=== PATIENT | male | born 1960 | race American Indian/Alaskan Native ===

== ENCOUNTER 2021-12-03 08:22 | Inpatient (IN) | payer BC ==
--- NOTE | 2021-12-03 08:58 | Emergency Department Report ---
ED Shortness of Breath HPI - General Chief Complaint: Dyspnea/Respdistress Stated Complaint: RESP DISTRESS Time Seen by Provider: 12/03/21 08:45 Source: patient, EMS Mode of arrival: Stretcher Limitations: No Limitations - History of Present Illness Initial Comments: Patient is a 61-year-old male with history of COPD brought in by EMS for evaluation of severe respiratory distress this morning. He reports history of pneumonia recently. EMS reports patient diaphoretic and tachypneic on arrival with sats in the 80s with tripoding. He was subsequently placed on 10 L of oxygen and given albuterol neb and placed on CPAP. No prior history of intubati on. - Related Data Allergies Allergy/AdvReac Type Severity Reaction Status Date / Time No Known Allergies Allergy Verified 12/03/21 08:56 ED Review of Systems ROS: Stated complaint: RESP DISTRESS Other details as noted in HPI Constitutional: denies: chills, fever Respiratory: shortness of breath Cardiovascular: denies: chest pain, palpitations Gastrointestinal: denies: abdominal pain, nausea, diarrhea Genitourinary: denies: urgency, dysuria Musculoskeletal: denies: back pain, joint swelling, arthralgia Skin: denies: rash, lesions Neurological: denies: headache, weakness, paresthesias Psychiatric: denies: anxiety, depression ED Past Medical Hx - Past Medical History Hx COPD: Yes ED Physical Exam - General Limitations: No Limitations General appearance: alert, in distress - Head Head exam: Present: atraumatic, normocephalic - Respiratory Respiratory exam: Present: respiratory distress, rales (Apical Rales bilaterally), accessory muscle use, decreased breath sounds, other (Tachypnea) - Cardiovascular Cardiovascular Exam: Present: regular rate, normal rhythm, normal heart sounds - GI/Abdominal GI/Abdominal exam: Present: soft. Absent: distended, tenderness - Rectal Rectal exam: Present: deferred - Neurological Exam Neurological exam: Present: alert, oriented X3 - Psychiatric Psychiatric exam: Present: normal affect, normal mood - Skin Skin exam: Present: warm, dry, intact, normal color ED Course Vital Signs 12/03/21 12/03/21 12/03/21 08:56 09:08 09:09 Temperature 98.4 F Pulse Rate 68 Pulse Rate [ Anterior Bilateral Throughout] Respiratory 16 Rate Respiratory Rate [Anterior Bilateral Throughout] Blood Pressure Blood Pressure 140/64 [Left] O2 Sat by Pulse 97 94 Oximetry 12/03/21 12/03/21 12/03/21 09:19 09:28 10:25 Temperature Pulse Rate 69 53 L Pulse Rate [ 56 L Anterior Bilateral Throughout] Respiratory 26 H 21 Rate Respiratory 24 Rate [Anterior Bilateral Throughout] Blood Pressure 140/94 128/87 Blood Pressure [Left] O2 Sat by Pulse 98 97 Oximetry ED Medical Decision Making - Lab Data Result diagrams: 12/03/21 09:15 12/03/21 09:15 - Medical Decision Making Patient transitioned to BiPAP upon arrival and appears to have improved work of breathing. ABG with pH of 7.34, PCO2 47, PO2 91, HCO3 24. Chest ray shows mild cardiomegaly with bibasilar opacities. In addition to the Decadron and albuterol he was given by EMS we administered several DuoNeb treatments. Will admit to hospitalist for acute respiratory failure with hypoxia. Critical care attestation.: If time is entered above; I have spent that time in minutes in the direct care of this critically ill patient, excluding procedure time. ED Disposition Clinical Impression: Acute respiratory failure, COPD exacerbation Disposition: ADMITTED INPATIENT Is pt being admited?: Yes Condition: Stable Instructions: Chronic Obstructive Pulmonary Disease (ED)
[2021-12-03] MEDS ORDERED: IPRATROPIUM/ALBUTEROL SULFATE 3 ML AMPUL.NEB IH ONE (09:00)
[2021-12-03 09:23] LABS: ABG Base Excess -1.3 mmol/L (-2.0-3.0); ABG HCO3 24.8 mmol/L (20.0-26.0); ABG Methemoglobin 0.5 % (0.0-1.5); ABG Oxygen Saturation 96.7 % (95.0-99.0); ABG PCO2 47.1 mm Hg; ABG PH 7.34 pH Units (7.350-7.450); ABG PO2 91.1 mm Hg (80.0-90.0)
--- NOTE | 2021-12-03 09:27 | XRay Report ---
CHEST 1 VIEW 12/03/2021 9:00 AM INDICATION / CLINICAL INFORMATION: Dyspnea. COMPARISON: None available. FINDINGS: SUPPORT DEVICES: None. HEART / MEDIASTINUM: Heart is enlarged with left-sided single lead AICD. LUNGS / PLEURA: Mild bibasilar pulmonary opacities. No pneumothorax. ADDITIONAL FINDINGS: Severe S-shaped thoracic scoliosis. IMPRESSION: 1. Mild cardiomegaly with bibasilar pulmonary opacities. No large pleural effusion. Signer Name: Yobani Bradley MD Signed: 12/03/2021 9:23 AM Workstation Name: [id number]
[2021-12-03 09:52] LABS: Hematocrit 38.6 % (35.5-45.6); Hemoglobin 12.6 gm/dl (11.8-15.2); Mean Corpuscular HGB Conc 33 % (32-34); Mean Corpuscular Volume 95 fl (84-94); Platelet Count 239 K/mm3 (140-440); Red Blood Count 4.07 M/mm3 (3.65-5.03); Red Cell Distribution Width 13.8 % (13.2-15.2)
[2021-12-03 10:14] LABS: Albumin 3.9 g/dL (3.9-5); Calcium 8.8 mg/dL (8.4-10.2)
[2021-12-03] MEDS ORDERED: ONDANSETRON 4 MG/2 ML INJ IV PRN (11:09)
[2021-12-03] MEDS ORDERED: DEXTROSE 50% IN WATER (25GM) 50 ML SYRINGE IV PRN (11:09)
[2021-12-03] MEDS ORDERED: ACETAMINOPHEN 325 MG TAB PO PRN (11:09)
[2021-12-03] MEDS ORDERED: NALOXONE 0.4 MG/1 ML INJ IV PRN (11:09)
[2021-12-03] MEDS ORDERED: oxyCODONE /ACETAMINOPHEN 5-325MG TAB PO PRN (11:09)
[2021-12-03 11:16] LABS: Basophils % (Manual) 0 % (0.0-1.8); Eosinophils % (Manual) 0 % (0.0-4.3); Monocytes % (Manual) 0 % (0.0-7.3); RBC Morphology Normal; Total Cells Counted 100
[2021-12-03 11:17] LABS: Platelet Clumps Rare; Platelet Estimate Consistent w Auto; Toxic Granulation 1+
--- NOTE | 2021-12-03 11:17 | History and Physical Report ---
History of Present Illness Date of examination: 12/03/21 Date of admission: 12/03/21 Chief complaint: Shortness of breath History of present illness: Patient is a 61-year-old male with past medical history of COPD,CVA ?congestive heart failure, who presents to the hospital with complaint of shortness of breath that has been ongoing for about a week and got worse today. 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 He was noted to have a saturation in the 80s and was tripoding unable to complete sentences and was initially placed on 10 L of oxygen and subsequently changed to BiPAP. While he told the ED physician that he has no prior history of intubation he tells me that he may have but again could not really understand him through the BiPAP mask. No family is available he is originally from [place] and was just traveling to visit with his brother. He tells me that he is vaccinated and has received his booster shots. He was able to list some blood pressure medication that he takes but not all his medicines and did not know the doses. He mentioned Norvasc, Coreg, Lasix. He did mention that this is his third episode this year requiring hospitalization he could not give me his blood pressure information on daly arana has not obtained this.. Past History Past Medical History: COPD, heart failure, hypertension, hyperlipidemia Medications and Allergies Allergies Allergy/AdvReac Type Severity Reaction Status Date / Time No Known Allergies Allergy Verified 12/03/21 08:56 Home Medications Medication Instructions Recorded Confirmed Last Taken Type Aspirin 81 mg PO DAILY 12/03/21 12/03/21 Unknown History AtorvaSTATin 40 mg PO HS 12/03/21 12/03/21 Unknown History Isosorbide Dinitrate 20 mg PO DAILY 12/03/21 12/03/21 Unknown History Lasix TAB 40 mg PO DAILY 12/03/21 12/03/21 Unknown History Plavix 40 mg PO DAILY 12/03/21 12/03/21 Unknown History Protonix 40 mg PO DAILY 12/03/21 12/03/21 Unknown History Sacubitril/Valsartan 24 mg PO DAILY 12/03/21 12/03/21 Unknown History amLODIPine 5 mg PO DAILY 12/03/21 12/03/21 Unknown History carvediloL 12.5 mg PO DAILY 12/03/21 12/03/21 Unknown History hydrALAZINE 25 mg PO DAILY 12/03/21 12/03/21 Unknown History Active Meds: Active Medications Acetaminophen (Acetaminophen 325 Mg Tab) 650 mg PO Q6H PRN PRN Reason: Pain MILD(1-3)/Fever >100.5/[facility] Albuterol/Ipratropium (Ipratropium/Albuterol Sulfate 3 Ml Ampul.Neb) 1 ampul IH Q6HRT [facility] Amlodipine Besylate (Amlodipine 5 Mg Tab) 5 mg PO QDAY [facility] Aspirin (Aspirin 325 Mg Tab) 325 mg PO QDAY [facility] Atorvastatin Calcium (Atorvastatin 40 Mg Tab) 40 mg PO QHS [facility] Azithromycin (Azithromycin 250 Mg Tab) 500 mg PO QDAY [facility]; Protocol Budesonide (Budesonide 0.5 Mg/2 Ml Nebu) 0.5 mg IH Q12HRT [facility] Carvedilol (Carvedilol 3.125 Mg Tab) 3.125 mg PO BID [facility] Dextrose (Dextrose 50% In Water (25gm) 50 Ml Syringe) 50 ml IV Q30MIN PRN; Protocol PRN Reason: Hypoglycemia Furosemide (Furosemide 40 Mg/4 Ml Inj) 40 mg IV QDAY [facility] Heparin Sodium (Porcine) (Heparin 5,000 Unit/1 Ml Vial) 5,000 unit SUB-Q Q8HR [facility] Ceftriaxone Sodium (Rocephin/Ns 2 Gm/100 Ml) 2 gm in 100 mls @ 200 mls/hr IV Q24H [facility]; Protocol Methylprednisolone Sodium Succinate (Methylprednisolone Sod Succinate 125 Mg/2 Ml Inj) 80 mg IV Q8HR [facility] Naloxone HCl (Naloxone 0.4 Mg/1 Ml Inj) 0.1 mg IV Q2MIN PRN PRN Reason: Res Rate </= 8 or 02 SAT < 92% Ondansetron HCl (Ondansetron 4 Mg/2 Ml Inj) 4 mg IV Q8H PRN PRN Reason: Nausea And Vomiting Oxycodone/Acetaminophen (Oxycodone /Acetaminophen 5-325mg Tab) 1 tab PO Q6H PRN PRN Reason: Pain, Moderate (4-6) Senna (Sennosides 8.6 Mg Tab) 8.6 mg PO BID [facility] Sodium Chloride (Sodium Chloride 0.9% 10 Ml Flush Syringe) 10 ml IV BID [facility] Sodium Chloride (Sodium Chloride 0.9% 10 Ml Flush Syringe) 10 ml IV PRN PRN PRN Reason: LINE FLUSH Review of Systems All systems: negative Constitutional: sweats Cardiovascular: shortness of breath, dyspnea on exertion, no chest pain, no orthopnea, no palpitations, no rapid/irregular heart beat, no edema, no syncope, no lightheadedness Respiratory: shortness of breath, dyspnea on exertion Gastrointestinal: no abdominal pain, no nausea, no vomiting, no diarrhea Genitourinary Male: no hematuria, no flank pain, no discharge Integumentary: no rash, no pruritis, no redness, no sores, no wounds, no jaundice Neurological: no head injury, no transient paralysis, no paralysis, no weakness, no parathesias Psychiatric: no memory loss, no insomnia, no disorientation, no anxiety attacks Endocrine: no heat intolerance, no polydipsia, no excessive sweating Hematologic/Lymphatic: no easy bruising, no lymphadenopathy, no lymphedema Exam - Physical Exam Narrative exam: VITAL SIGNS: Reviewed. GENERAL: The patient appears normally developed, otherwise no acute distress on BiPAP vital signs as documented. HEAD: No signs of head trauma. EYES: Pupils are equal. Extraocular motions intact. EARS: Hearing grossly intact. MOUTH: Oropharynx is normal. NECK: No adenopathy, no JVD. CHEST: Chest with diminished breath sounds bilaterally, increased work of breathing unable to complete sentences. CARDIAC: Regular rate and rhythm. S1 and S2, without murmurs, gallops, or rubs. VASCULAR: No Edema. Peripheral pulses normal and equal in all extremities. ABDOMEN: Soft, non tender and non distended. No rebound or guarding, and no masses palpated. Bowel Sounds normal. MUSCULOSKELETAL: Good range of motion of all major joints. Extremities without clubbing, cyanosis or edema. NEUROLOGIC EXAM: Alert and oriented x 3 No focal sensory or strength deficits. Speech normal. Follows commands. PSYCHIATRIC: Mood normal. SKIN: detail exam as documented in skin assessment - Constitutional Vitals: Temp Pulse Resp BP Pulse Ox 98.4 F 53 L 21 128/87 97 12/03/21 09:09 12/03/21 10:25 12/03/21 10:25 12/03/21 10:25 12/03/21 10:25 Results - Labs CBC & Chem 7: 12/04/21 03:20 12/04/21 03:20 Labs: Laboratory Last Values WBC 11.1 K/mm3 (4.5-11.0) H 12/03/21 09:15 RBC 4.07 M/mm3 (3.65-5.03) 12/03/21 09:15 Hgb 12.6 gm/dl (11.8-15.2) 12/03/21 09:15 Hct 38.6 % (35.5-45.6) 12/03/21 09:15 MCV 95 fl (84-94) H 12/03/21 09:15 MCH 31 pg (28-32) 12/03/21 09:15 MCHC 33 % (32-34) 12/03/21 09:15 RDW 13.8 % (13.2-15.2) 12/03/21 09:15 Plt Count 239 K/mm3 (140-440) 12/03/21 09:15 Add Manual Diff Complete 12/03/21 09:15 Total Counted 100 12/03/21 09:15 Seg Neutrophils % [employer] 12/03/21 09:15 Seg Neuts % (Manual) 93.0 % (40.0-70.0) H 12/03/21 09:15 Band Neutrophils % 0 % 12/03/21 09:15 Lymphocytes % (Manual) 7.0 % (13.4-35.0) L 12/03/21 09:15 Reactive Lymphs % (Man) 0 % 12/03/21 09:15 Monocytes % (Manual) 0 % (0.0-7.3) 12/03/21 09:15 Eosinophils % (Manual) 0 % (0.0-4.3) 12/03/21 09:15 Basophils % (Manual) 0 % (0.0-1.8) 12/03/21 09:15 Metamyelocytes % 0 % 12/03/21 09:15 Myelocytes % 0 % 12/03/21 09:15 Promyelocytes % 0 % 12/03/21 09:15 Blast Cells % 0 % 12/03/21 09:15 Nucleated RBC % Not Reportable 12/03/21 09:15 Seg Neutrophils # Man 10.3 K/mm3 (1.8-7.7) H 12/03/21 09:15 Band Neutrophils # 0.0 K/mm3 12/03/21 09:15 Lymphocytes # (Manual) 0.8 K/mm3 (1.2-5.4) L 12/03/21 09:15 Abs React Lymphs (Man) 0.0 K/mm3 12/03/21 09:15 Monocytes # (Manual) 0.0 K/mm3 (0.0-0.8) 12/03/21 09:15 Eosinophils # (Manual) 0.0 K/mm3 (0.0-0.4) 12/03/21 09:15 Basophils # (Manual) 0.0 K/mm3 (0.0-0.1) 12/03/21 09:15 Metamyelocytes # 0.0 K/mm3 12/03/21 09:15 Myelocytes # 0.0 K/mm3 12/03/21 09:15 Promyelocytes # 0.0 K/mm3 12/03/21 09:15 Blast Cells # 0.0 K/mm3 12/03/21 09:15 WBC Morphology Not Reportable 12/03/21 09:15 Hypersegmented Neuts Not Reportable 12/03/21 09:15 Hyposegmented Neuts Not Reportable 12/03/21 09:15 Hypogranular Neuts Not Reportable 12/03/21 09:15 Smudge Cells Not Reportable 12/03/21 09:15 Toxic Granulation 1+ 12/03/21 09:15 Toxic Vacuolation Not Reportable 12/03/21 09:15 Dohle Bodies Not Reportable 12/03/21 09:15 Pelger-Huet Anomaly Not Reportable 12/03/21 09:15 Delvin Rods Not Reportable 12/03/21 09:15 Platelet Estimate Consistent w auto 12/03/21 09:15 Clumped Platelets Rare 12/03/21 09:15 Plt Clumps, EDTA Not Reportable 12/03/21 09:15 Large Platelets Not Reportable 12/03/21 09:15 Giant Platelets Not Reportable 12/03/21 09:15 Platelet Satelliting Not Reportable 12/03/21 09:15 Plt Morphology Comment Not Reportable 12/03/21 09:15 RBC Morphology Normal 12/03/21 09:15 Dimorphic RBCs Not Reportable 12/03/21 09:15 Polychromasia Not Reportable 12/03/21 09:15 Hypochromasia Not Reportable 12/03/21 09:15 Poikilocytosis Not Reportable 12/03/21 09:15 Anisocytosis Not Reportable 12/03/21 09:15 Microcytosis Not Reportable 12/03/21 09:15 Macrocytosis Not Reportable 12/03/21 09:15 Spherocytes Not Reportable 12/03/21 09:15 Pappenheimer Bodies Not Reportable 12/03/21 09:15 Sickle Cells Not Reportable 12/03/21 09:15 Target Cells Not Reportable 12/03/21 09:15 Tear Drop Cells Not Reportable 12/03/21 09:15 Ovalocytes Not Reportable 12/03/21 09:15 Helmet Cells Not Reportable 12/03/21 09:15 Ring-Warthen Bodies Not Reportable 12/03/21 09:15 [place] Rings Not Reportable 12/03/21 09:15 Bhaskar Cells Not Reportable 12/03/21 09:15 Bite Cells Not Reportable 12/03/21 09:15 Crenated Cell Not Reportable 12/03/21 09:15 Elliptocytes Not Reportable 12/03/21 09:15 Acanthocytes (Spur) Not Reportable 12/03/21 09:15 Rouleaux Not Reportable 12/03/21 09:15 Hemoglobin C Crystals Not Reportable 12/03/21 09:15 Schistocytes Not Reportable 12/03/21 09:15 Malaria parasites Not Reportable 12/03/21 09:15 Madan Bodies Not Reportable 12/03/21 09:15 Hem Pathologist Commnt No 12/03/21 09:15 ABG pH 7.340 pH Units (7.350-7.450) L 12/03/21 08:55 ABG pCO2 47.1 mm Hg 12/03/21 08:55 ABG pO2 91.1 mm Hg (80.0-90.0) H 12/03/21 08:55 ABG HCO3 24.8 mmol/L (20.0-26.0) 12/03/21 08:55 ABG O2 Saturation 96.7 % (95.0-99.0) 12/03/21 08:55 ABG O2 Content 17.7 (0.0-44) 12/03/21 08:55 ABG Base Excess -1.3 mmol/L (-2.0-3.0) 12/03/21 08:55 ABG Hemoglobin 13.2 gm/dl (14.0-18.0) L 12/03/21 08:55 ABG Carboxyhemoglobin 1.2 % (0.0-5.0) 12/03/21 08:55 ABG Methemoglobin 0.5 % (0.0-1.5) 12/03/21 08:55 Oxyhemoglobin 95.1 % (95.0-99.0) 12/03/21 08:55 FiO2 40 % 12/03/21 08:55 Sodium 140 mmol/L (137-145) 12/03/21 09:15 Potassium 4.0 mmol/L (3.6-5.0) 12/03/21 09:15 Chloride 103.8 mmol/L (98-107) 12/03/21 09:15 Carbon Dioxide 26 mmol/L (22-30) 12/03/21 09:15 Anion Gap 14 mmol/L 12/03/21 09:15 BUN 23 mg/dL (9-20) H 12/03/21 09:15 Creatinine 1.3 mg/dL (0.8-1.3) 12/03/21 09:15 Estimated GFR 56 ml/min 12/03/21 09:15 BUN/Creatinine Ratio 18 % 12/03/21 09:15 Glucose 195 mg/dL (75-100) H 12/03/21 09:15 Calcium 8.8 mg/dL (8.4-10.2) 12/03/21 09:15 Total Bilirubin 0.20 mg/dL (0.1-1.2) 12/03/21 09:15 AST 24 units/L (5-40) 12/03/21 09:15 ALT 34 units/L (7-56) 12/03/21 09:15 Alkaline Phosphatase 53 units/L (35-129) 12/03/21 09:15 Total Protein 7.2 g/dL (6.3-8.2) 12/03/21 09:15 Albumin 3.9 g/dL (3.9-5) 12/03/21 09:15 Albumin/Globulin Ratio 1.2 % 12/03/21 09:15 Assessment and Plan Assessment and plan: Patient is a 61-year-old male with past medical history of COPD, congestive heart failure, who presents to the hospital with complaint of shortness of breath that has been ongoing for about a week and got worse today. 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 He was noted to have a saturation in the 80s and was tripoding unable to complete sentences and was initially placed on 10 L of oxygen and subsequently changed to BiPAP. While he told the ED physician that he has no prior history of intubation he tells me that he may have but again could not really understand him through the BiPAP mask. No family is available he is originally from [place] and was just traveling to visit with his brother. He tells me that he is vaccinated and has received his booster shots. He was able to list some blood pressure medication that he takes but not all his medicines and did not know the doses. He mentioned Norvasc, Coreg, Lasix. He did mention that this is his third episode this year requiring hospitalization he could not give me his blood pressure information on registration has not obtained this.. Acute hypoxic respiratory failure likely secondary to COPD exacerbation with underlying congestive heart failure COPD with exacerbation possible underlying bronchitis CHF possibly systolic with exacerbation Hyperglycemia question underlining diabetes Hypertension Morbid obesity Bradycardia hX OF cva Plan Admit to IMCU Wean as tolerated from BIPAP. Pateint remains on BiPAP and is unable to carry out full conversation. Will revist to further evaluate Will give a full dose of Lovenox and check a D.dimer, if elevated, will obtain CTA Doppler lower ext COPD/CHF protocol Pulm and cardiology consulted Try to obtain more hx in relation to prior intubation and also home medications Steroids/NEBS Lasix Continuous pulse ox DVT/GI PROPHY The high probability of a clinically significant, sudden or life threatening d eterioration of the [PULM, CARDIAC] system(s) required my full and direct attention, intervention and personal management. The aggregate critical care time was [90] minutes. This time is in addition to time spent performing reported procedures but includes the following: [X] Data Review and interpretation [X] Patient assessment and monitoring of vital signs [X] Documentation [X] Medication orders and management Advance Directives: Yes (Full code) Plan of care discussed with patient/family: Yes
--- NOTE | 2021-12-03 11:19 | Consultation ---
History of Present Illness Consult date: 12/03/21 Requesting physician: CAHDWICK THOMPSON Reason for consult: COPD, hypoxemia History of present illness: 61 y/o male with no prior history of COPD, but does have a history of CHF diagnosed back in August of this year admitted with acute respiratory failure. Patient is from [place] and is here visiting. Per patient started feeling tight yesterday morning while washing up. Was diagnosed with pneumonia about a week ago. Per patient has been dealing with "fluid build up " since August. Remainder of the review is negative. BNP was elevated at 963. On continuous bipap. Past History Past Medical History: heart failure, hypertension, other (obesity) Social history: smoking (quit smoking in 2019) Medications and Allergies Allergies Allergy/AdvReac Type Severity Reaction Status Date / Time No Known Allergies Allergy Verified 12/03/21 08:56 Home Medications Medication Instructions Recorded Confirmed Last Taken Type Aspirin 81 mg PO DAILY 12/03/21 12/03/21 Unknown History AtorvaSTATin 40 mg PO HS 12/03/21 12/03/21 Unknown History Isosorbide Dinitrate 20 mg PO DAILY 12/03/21 12/03/21 Unknown History Lasix TAB 40 mg PO DAILY 12/03/21 12/03/21 Unknown History Plavix 40 mg PO DAILY 12/03/21 12/03/21 Unknown History Protonix 40 mg PO DAILY 12/03/21 12/03/21 Unknown History Sacubitril/Valsartan 24 mg PO DAILY 12/03/21 12/03/21 Unknown History amLODIPine 5 mg PO DAILY 12/03/21 12/03/21 Unknown History carvediloL 12.5 mg PO DAILY 12/03/21 12/03/21 Unknown History hydrALAZINE 25 mg PO DAILY 12/03/21 12/03/21 Unknown History Active Meds: Active Medications Acetaminophen (Acetaminophen 325 Mg Tab) 650 mg PO Q6H PRN PRN Reason: Pain MILD(1-3)/Fever >100.5/[facility] Albuterol/Ipratropium (Ipratropium/Albuterol Sulfate 3 Ml Ampul.Neb) 1 ampul IH Q6HRT [facility] Amlodipine Besylate (Amlodipine 5 Mg Tab) 5 mg PO QDAY [facility] Aspirin (Aspirin 325 Mg Tab) 325 mg PO QDAY [facility] Atorvastatin Calcium (Atorvastatin 40 Mg Tab) 40 mg PO QHS [facility] Azithromycin (Azithromycin 250 Mg Tab) 500 mg PO QDAY [facility]; Protocol Budesonide (Budesonide 0.5 Mg/2 Ml Nebu) 0.5 mg IH Q12HRT [facility] Carvedilol (Carvedilol 3.125 Mg Tab) 3.125 mg PO BID [facility] Dextrose (Dextrose 50% In Water (25gm) 50 Ml Syringe) 50 ml IV Q30MIN PRN; Protocol PRN Reason: Hypoglycemia Furosemide (Furosemide 40 Mg/4 Ml Inj) 40 mg IV QDAY [facility] Heparin Sodium (Porcine) (Heparin 5,000 Unit/1 Ml Vial) 5,000 unit SUB-Q Q8HR [facility] Ceftriaxone Sodium (Rocephin/Ns 2 Gm/100 Ml) 2 gm in 100 mls @ 200 mls/hr IV Q24H [facility]; Protocol Methylprednisolone Sodium Succinate (Methylprednisolone Sod Succinate 125 Mg/2 Ml Inj) 80 mg IV Q8HR [facility] Naloxone HCl (Naloxone 0.4 Mg/1 Ml Inj) 0.1 mg IV Q2MIN PRN PRN Reason: Res Rate </= 8 or 02 SAT < 92% Ondansetron HCl (Ondansetron 4 Mg/2 Ml Inj) 4 mg IV Q8H PRN PRN Reason: Nausea And Vomiting Oxycodone/Acetaminophen (Oxycodone /Acetaminophen 5-325mg Tab) 1 tab PO Q6H PRN PRN Reason: Pain, Moderate (4-6) Senna (Sennosides 8.6 Mg Tab) 8.6 mg PO BID [facility] Sodium Chloride (Sodium Chloride 0.9% 10 Ml Flush Syringe) 10 ml IV BID [facility] Sodium Chloride (Sodium Chloride 0.9% 10 Ml Flush Syringe) 10 ml IV PRN PRN PRN Reason: LINE FLUSH Review of Systems All systems: negative Physical Examination Vital signs: Vital Signs Pulse Ox 97 12/03/21 08:56 General appearance: no acute distress, alert Eyes: non-icteric Neck: supple Effort: mildly labored Ascultation: Bilateral: diminished breath sounds Percussion: Bilateral: not dull Tactile fremitus: Bilateral: normal Cardiovascular: regular rate and rhythm Gastrointestinal: normoactive bowel sounds normal mental status, non-focal exam mood appropriate, affect normal Results - Laboratory Findings CBC and BMP: 12/04/21 03:20 12/04/21 03:20 ABG ABG pH 7.340 pH Units (7.350-7.450) L 12/03/21 08:55 ABG pCO2 47.1 mm Hg 12/03/21 08:55 ABG pO2 91.1 mm Hg (80.0-90.0) H 12/03/21 08:55 ABG O2 Saturation 96.7 % (95.0-99.0) 12/03/21 08:55 Abnormal lab findings: Abnormal Labs 12/03/21 12/03/21 12/03/21 08:55 09:15 09:15 WBC 11.1 H MCV 95 H Seg Neuts % (Manual) 93.0 H Lymphocytes % (Manual) 7.0 L Seg Neutrophils # Man 10.3 H Lymphocytes # (Manual) 0.8 L ABG pH 7.340 L ABG pO2 91.1 H ABG Hemoglobin 13.2 L BUN 23 H Glucose 195 H - Diagnostic Findings Chest x-ray: image reviewed CT scan - chest: image reviewed Assessment and Plan 61 y/o male with acute respiratory failure. 1. Elevated BNP 2. Continue diuresis 3. stop steroids 4. Wean FiO2 as tolerated.
[2021-12-03] MEDS: AZITHROMYCIN 250 MG TAB PO SCH (12:06)
[2021-12-03] MEDS: FUROSEMIDE 40 MG/4 ML INJ IV SCH (12:07)
[2021-12-03] MEDS: cefTRIAXone/NS 2 GM/100 ML 2 GM/100 ML BAG IV SCH (12:07)
[2021-12-03] MEDS ORDERED: ENOXAPARIN 100 MG/1 ML INJ SUB-Q ONE (12:18)
[2021-12-03] MEDS: methylPREDNISolone Sod Succinate 125 MG/2 ML INJ IV SCH ×2 (15:00→21:01)
[2021-12-03] MEDS: HEPARIN 5,000 UNIT/1 ML VIAL SUB-Q SCH ×2 (15:35→21:00)
[2021-12-03] MEDS: IPRATROPIUM/ALBUTEROL SULFATE 3 ML AMPUL.NEB IH SCH ×2 (16:44→20:11)
[2021-12-03] MEDS: BUDESONIDE 0.5 MG/2 ML NEBU IH SCH (20:11)
[2021-12-03] MEDS: carvediloL 3.125 MG TAB PO SCH (21:00)
[2021-12-03] MEDS: SENNOSIDES 8.6 MG TAB PO SCH (21:01)
[2021-12-03] MEDS ORDERED: carvediloL 6.25 MG TAB PO SCH (22:00)
[2021-12-04 03:59] LABS: Basophils # (Auto) 0.1 K/mm3 (0.0-0.1); Basophils % (Auto) 0.9 % (0.0-1.8); Hemoglobin 13.1 gm/dl (11.8-15.2); Lymphocytes # (Auto) 1.5 K/mm3 (1.2-5.4); Mean Corpuscular HGB Conc 35 % (32-34); Mean Corpuscular Volume 93 fl (84-94); Monocytes # (Auto) 0.2 K/mm3 (0.0-0.8); Monocytes % (Auto) 1.3 % (0.0-7.3); Platelet Count 255 K/mm3 (140-440); Red Blood Count 4.08 M/mm3 (3.65-5.03); Red Cell Distribution Width 13.7 % (13.2-15.2)
[2021-12-04] MEDS: IPRATROPIUM/ALBUTEROL SULFATE 3 ML AMPUL.NEB IH SCH ×2 (04:02→08:37)
[2021-12-04 04:17] LABS: Alanine Aminotransferase 31 units/L (7-56); Albumin 3.9 g/dL (3.9-5); BUN/Creatinine Ratio 17; Blood Urea Nitrogen 20 mg/dL (9-20); Calcium 9.6 mg/dL (8.4-10.2); Hemolysis Index 4
--- NOTE | 2021-12-04 04:46 | Cat Scan Report ---
CTA CHEST WITH CONTRAST INDICATION / CLINICAL INFORMATION: shortness of breath. TECHNIQUE: Axial CT images were obtained through the chest after injection of 100 cc Omnipaque 350 IV contrast. 3 plane MIP and/or 3D reconstructions were produced. All CT scans at this location are per formed using CT dose reduction for ALARA by means of automated exposure control. COMPARISON: One view of the chest from 12/03/2021. FINDINGS: PULMONARY EMBOLUS: None. THORACIC AORTA: No significant abnormality. HEART: Moderately enlarged without a significant pericardial effusion. There is expected positioning of a left ICD. CORONARY ARTERY CALCIFICATION: Absent -- None. MEDIASTINUM / GILDA: No significant abnormality. PLEURA: No pleural effusion. No pneumothorax. LUNGS: There is mild bibasilar atelectasis with otherwise clear lungs. Aeration of the lungs has sign ificantly improved. ADDITIONAL FINDINGS: None. UPPER ABDOMEN: No acute findings. SKELETAL STRUCTURES: Scoliosis is again seen with mild spondylosis. No acute findings. IMPRESSION: 1. No CT evidence for pulmonary embolism. 2. Significantly improved aeration of the lungs with mild residual bibasilar atelectasis. 3. Moderate cardiomegaly. Signer Name: Dawson León MD Signed: 12/04/2021 4:41 AM Workstation Name: [id number]
[2021-12-04] MEDS: HEPARIN 5,000 UNIT/1 ML VIAL SUB-Q SCH ×3 (05:05→20:59)
[2021-12-04] MEDS: methylPREDNISolone Sod Succinate 125 MG/2 ML INJ IV SCH (05:05)
[2021-12-04] MEDS: BUDESONIDE 0.5 MG/2 ML NEBU IH SCH (08:37)
[2021-12-04] MEDS: ASPIRIN 81 MG TAB CHEW PO SCH (09:55)
[2021-12-04] MEDS: ISOSORBIDE DINITRATE 20 MG TAB PO SCH (09:56)
[2021-12-04] MEDS: FUROSEMIDE 40 MG/4 ML INJ IV SCH (09:56)
[2021-12-04] MEDS: AZITHROMYCIN 250 MG TAB PO SCH (09:56)
[2021-12-04] MEDS: SACUBITRIL/VALSARTAN 24-26 MG TAB PO SCH (09:56)
[2021-12-04] MEDS: SENNOSIDES 8.6 MG TAB PO SCH ×2 (09:56→20:59)
[2021-12-04] MEDS: carvediloL 3.125 MG TAB PO SCH ×2 (09:56→20:59)
[2021-12-04] MEDS: amLODIPine 5 MG TAB PO SCH (09:56)
[2021-12-04] MEDS ORDERED: NON-FORMULARY EACH (Aspirin 81 MG) PO SCH (10:00)
[2021-12-04] MEDS ORDERED: NON-FORMULARY EACH (Isosorbide Dinitrate 20 MG) PO SCH (10:00)
[2021-12-04] MEDS ORDERED: VALSARTAN PO SCH (10:00)
[2021-12-04] MEDS ORDERED: ASPIRIN 325 MG TAB PO SCH (10:00)
[2021-12-04] MEDS ORDERED: SACUBITRIL PO SCH (10:00)
--- NOTE | 2021-12-04 11:37 | Progress Note ---
Assessment and Plan 61 y/o male with acute respiratory failure. 12/04/21: Continue diuresis. Wean Fio2 to off. Transfer to floor, telemetry. 1. Elevated BNP 2. Continue diuresis 3. stop steroids 4. Wean FiO2 as tolerated. Subjective Date of service: 12/04/21 Interval history: No acute events. Off bipap and stable on 2 liters. Wants to go home. Objective Vital Signs - 12hr 12/04/21 12/04/21 12/04/21 00:00 00:15 01:00 Temperature Pulse Rate 59 L 70 59 L Pulse Rate [ Anterior Bilateral Throughout] Pulse Rate [ 63 From Monitor] Pulse Rate [ Posterior Left Bases] Pulse Rate [ Posterior Right Bases] Respiratory 17 12 Rate Respiratory Rate [Anterior Bilateral Throughout] Respiratory Rate [Posterior Left Bases] Respiratory Rate [Posterior Right Bases] Blood Pressure 132/79 124/75 O2 Sat by Pulse 96 96 Oximetry 12/04/21 12/04/21 12/04/21 02:00 03:00 04:00 Temperature 97.4 F L Pulse Rate 62 64 Pulse Rate [ Anterior Bilateral Throughout] Pulse Rate [ From Monitor] Pulse Rate [ Posterior Left Bases] Pulse Rate [ Posterior Right Bases] Respiratory 20 21 Rate Respiratory Rate [Anterior Bilateral Throughout] Respiratory Rate [Posterior Left Bases] Respiratory Rate [Posterior Right Bases] Blood Pressure 132/81 155/96 O2 Sat by Pulse 96 96 Oximetry 12/04/21 12/04/21 12/04/21 04:04 04:18 04:30 Temperature Pulse Rate 76 Pulse Rate [ 69 Anterior Bilateral Throughout] Pulse Rate [ 76 From Monitor] Pulse Rate [ Posterior Left Bases] Pulse Rate [ Posterior Right Bases] Respiratory 19 20 Rate Respiratory 24 Rate [Anterior Bilateral Throughout] Respiratory Rate [Posterior Left Bases] Respiratory Rate [Posterior Right Bases] Blood Pressure 159/89 O2 Sat by Pulse 96 Oximetry 12/04/21 12/04/21 12/04/21 04:50 05:00 06:00 Temperature Pulse Rate 63 69 66 Pulse Rate [ Anterior Bilateral Throughout] Pulse Rate [ From Monitor] Pulse Rate [ Posterior Left Bases] Pulse Rate [ Posterior Right Bases] Respiratory 21 17 Rate Respiratory Rate [Anterior Bilateral Throughout] Respiratory Rate [Posterior Left Bases] Respiratory Rate [Posterior Right Bases] Blood Pressure 158/100 148/91 O2 Sat by Pulse 92 97 Oximetry 12/04/21 12/04/21 12/04/21 07:00 08:00 08:44 Temperature 97.7 F Pulse Rate 59 L 77 Pulse Rate [ Anterior Bilateral Throughout] Pulse Rate [ 77 From Monitor] Pulse Rate [ 78 Posterior Left Bases] Pulse Rate [ 82 Posterior Right Bases] Respiratory 19 19 Rate Respiratory Rate [Anterior Bilateral Throughout] Respiratory 20 Rate [Posterior Left Bases] Respiratory 22 Rate [Posterior Right Bases] Blood Pressure 150/88 152/96 O2 Sat by Pulse 97 94 95 Oximetry 12/04/21 12/04/21 12/04/21 09:00 10:00 11:00 Temperature Pulse Rate 80 91 H 61 Pulse Rate [ Anterior Bilateral Throughout] Pulse Rate [ From Monitor] Pulse Rate [ Posterior Left Bases] Pulse Rate [ Posterior Right Bases] Respiratory 17 18 18 Rate Respiratory Rate [Anterior Bilateral Throughout] Respiratory Rate [Posterior Left Bases] Respiratory Rate [Posterior Right Bases] Blood Pressure 155/94 152/97 158/109 O2 Sat by Pulse 96 93 94 Oximetry Constitutional: no acute distress, alert Eyes: non-icteric Neck: supple Effort: mildly labored Ascultation: Bilateral: diminished breath sounds Percussion: Bilateral: not dull Tactile fremitus: Bilateral: normal Cardiovascular: regular rate and rhythm Gastrointestinal: normoactive bowel sounds Neurologic: normal mental status, non-focal exam Psychiatric: mood appropriate, affect normal CBC and BMP: 12/04/21 03:20 12/04/21 03:20 ABG, PT/INR, D-dimer: ABG ABG pH 7.340 pH Units (7.350-7.450) L 12/03/21 08:55 ABG pCO2 47.1 mm Hg 12/03/21 08:55 ABG pO2 91.1 mm Hg (80.0-90.0) H 12/03/21 08:55 ABG O2 Saturation 96.7 % (95.0-99.0) 12/03/21 08:55 PT/INR, D-dimer D-Dimer 1577.07 ng/mlDDU (0-234) H 12/03/21 12:31 Abnormal lab findings: Abnormal Labs 12/03/21 12/03/21 12/03/21 08:55 09:15 09:15 WBC 11.1 H MCV 95 H MCHC Lymph % (Auto) Seg Neutrophils % Seg Neuts % (Manual) 93.0 H Lymphocytes % (Manual) 7.0 L Seg Neutrophils # Seg Neutrophils # Man 10.3 H Lymphocytes # (Manual) 0.8 L D-Dimer ABG pH 7.340 L ABG pO2 91.1 H ABG Hemoglobin 13.2 L BUN 23 H Glucose 195 H POC Glucose NT-Pro-B Natriuret Pep 12/03/21 12/03/21 12/03/21 11:25 12:31 20:59 WBC MCV MCHC Lymph % (Auto) Seg Neutrophils % Seg Neuts % (Manual) Lymphocytes % (Manual) Seg Neutrophils # Seg Neutrophils # Man Lymphocytes # (Manual) D-Dimer 1577.07 H ABG pH ABG pO2 ABG Hemoglobin BUN Glucose POC Glucose 147 H NT-Pro-B Natriuret Pep 936.6 H 12/04/21 12/04/21 03:20 03:20 WBC 13.3 H MCV MCHC 35 H Lymph % (Auto) 11.0 L Seg Neutrophils % 86.8 H Seg Neuts % (Manual) Lymphocytes % (Manual) Seg Neutrophils # 11.5 H Seg Neutrophils # Man Lymphocytes # (Manual) D-Dimer ABG pH ABG pO2 ABG Hemoglobin BUN Glucose 147 H POC Glucose NT-Pro-B Natriuret Pep
--- NOTE | 2021-12-04 11:53 | Consultation ---
History of Present Illness Consult date: 12/04/21 Consult reason: congestive heart failure History of present illness: 61-year-old -[place] male who is visiting [place] from [place] has a history of COPD multiple CVAs in the past presenting with sudden onset of shortness of breath. Clear he claims that he had a recent history of pneumonia and had been treated with some antibiotics for 7 days. Patient was then admitted for further evaluation and management. Past History Past Medical History: heart failure, hypertension, other (obesity) Social history: smoking (quit smoking in 2019) Medications and Allergies Allergies Allergy/AdvReac Type Severity Reaction Status Date / Time No Known Allergies Allergy Verified 12/03/21 08:56 Home Medications Medication Instructions Recorded Confirmed Last Taken Type Aspirin 81 mg PO DAILY 12/03/21 12/03/21 Unknown History AtorvaSTATin 40 mg PO HS 12/03/21 12/03/21 Unknown History Isosorbide Dinitrate 20 mg PO DAILY 12/03/21 12/03/21 Unknown History Lasix TAB 40 mg PO DAILY 12/03/21 12/03/21 Unknown History Plavix 40 mg PO DAILY 12/03/21 12/03/21 Unknown History Protonix 40 mg PO DAILY 12/03/21 12/03/21 Unknown History Sacubitril/Valsartan 24 mg PO DAILY 12/03/21 12/03/21 Unknown History amLODIPine 5 mg PO DAILY 12/03/21 12/03/21 Unknown History carvediloL 12.5 mg PO DAILY 12/03/21 12/03/21 Unknown History hydrALAZINE 25 mg PO DAILY 12/03/21 12/03/21 Unknown History Active Meds: Active Medications Acetaminophen (Acetaminophen 325 Mg Tab) 650 mg PO Q6H PRN PRN Reason: Pain MILD(1-3)/Fever >100.5/[place] Albuterol/Ipratropium (Ipratropium/Albuterol Sulfate 3 Ml Ampul.Neb) 1 ampul IH Q6HRT [facility] Last Admin: 12/04/21 08:37 Dose: 1 ampul Amlodipine Besylate (Amlodipine 5 Mg Tab) 5 mg PO QDAY [facility] Last Admin: 12/04/21 09:56 Dose: 5 mg Aspirin (Aspirin 81 Mg Tab Chew) 81 mg PO DAILY [facility] Last Admin: 12/04/21 09:55 Dose: 81 mg Atorvastatin Calcium (Atorvastatin 40 Mg Tab) 40 mg PO QHS [facility] Last Admin: 12/03/21 21:00 Dose: 40 mg Azithromycin (Azithromycin 250 Mg Tab) 500 mg PO QDAY [facility]; Protocol Last Admin: 12/04/21 09:56 Dose: 500 mg Budesonide (Budesonide 0.5 Mg/2 Ml Nebu) 0.5 mg IH Q12HRT [facility] Last Admin: 12/04/21 08:37 Dose: 0.5 mg Carvedilol (Carvedilol 3.125 Mg Tab) 3.125 mg PO BID [facility] Last Admin: 12/04/21 09:56 Dose: 3.125 mg Dextrose (Dextrose 50% In Water (25gm) 50 Ml Syringe) 50 ml IV Q30MIN PRN; Protocol PRN Reason: Hypoglycemia Furosemide (Furosemide 40 Mg/4 Ml Inj) 40 mg IV QDAY [facility] Last Admin: 12/04/21 09:56 Dose: 40 mg Heparin Sodium (Porcine) (Heparin 5,000 Unit/1 Ml Vial) 5,000 unit SUB-Q Q8HR [facility] Last Admin: 12/04/21 05:05 Dose: 5,000 unit Ceftriaxone Sodium (Rocephin/Ns 2 Gm/100 Ml) 2 gm in 100 mls @ 200 mls/hr IV Q24H [facility]; Protocol Last Admin: 12/03/21 12:07 Dose: 200 mls/hr Isosorbide Dinitrate (Isosorbide Dinitrate 20 Mg Tab) 20 mg PO DAILY [facility] Last Admin: 12/04/21 09:56 Dose: 20 mg Methylprednisolone Sodium Succinate (Methylprednisolone Sod Succinate 125 Mg/2 Ml Inj) 80 mg IV Q8HR [facility] Last Admin: 12/04/21 05:05 Dose: 80 mg Naloxone HCl (Naloxone 0.4 Mg/1 Ml Inj) 0.1 mg IV Q2MIN PRN PRN Reason: Res Rate </= 8 or 02 SAT < 92% Ondansetron HCl (Ondansetron 4 Mg/2 Ml Inj) 4 mg IV Q8H PRN PRN Reason: Nausea And Vomiting Oxycodone/Acetaminophen (Oxycodone /Acetaminophen 5-325mg Tab) 1 tab PO Q6H PRN PRN Reason: Pain, Moderate (4-6) Sacubitril/Valsartan (Sacubitril/Valsartan 24-26 Mg Tab) 1 each PO DAILY [facility] Last Admin: 12/04/21 09:56 Dose: 1 each Senna (Sennosides 8.6 Mg Tab) 8.6 mg PO BID [facility] Last Admin: 12/04/21 09:56 Dose: 8.6 mg Sodium Chloride (Sodium Chloride 0.9% 10 Ml Flush Syringe) 10 ml IV BID [facility] Last Admin: 12/04/21 09:56 Dose: 10 ml Sodium Chloride (Sodium Chloride 0.9% 10 Ml Flush Syringe) 10 ml IV PRN PRN PRN Reason: LINE FLUSH Review of Systems Constitutional: weight gain, no fever, no chills, no sweats Ears, nose, mouth and throat: no ear pain, no ear discharge, no tinnitis, no decreased hearing, no nose pain Cardiovascular: shortness of breath, dyspnea on exertion, no chest pain, no o rthopnea, no palpitations, no rapid/irregular heart beat, no edema Respiratory: cough, shortness of breath, dyspnea on exertion, no hemoptysis Gastrointestinal: no abdominal pain, no nausea, no vomiting, no diarrhea Genitourinary Male: no dysuria, no hematuria, no flank pain, no discharge, no urinary frequency, no urinary hesitancy Rectal: no pain, no incontinence, no bleeding Musculoskeletal: no neck stiffness Integumentary: no rash, no pruritis, no redness, no sores, no wounds, no jaundice Neurological: no paralysis, no weakness, no parathesias, no numbness Endocrine: no cold intolerance, no heat intolerance, no polyphagia, no excessive thirst, no polydipsia, no polyuria, no nocturia Hematologic/Lymphatic: no easy bruising, no easy bleeding Allergic/Immunologic: no urticaria, no allergic rhinitis, no wheezing Physical Examination Vital Signs Pulse Ox 97 12/03/21 08:56 General appearance: no acute distress, obese HEENT: Positive: PERRL, Normocephaly, Mucus Membranes Moist Neck: Positive: neck supple, trachea midline. Negative: JVD/HJR Cardiac: Positive: S1/S2, S3, PMI, Dilated, Laterally Displaced Lungs: Positive: clear to auscultation, No Wheeze, Rales, Rhonchi Neuro: Positive: Grossly Intact, No Lateralizing Findings Abdomen: Positive: Unremarkable, Soft, Active Bowel Sounds Male genitourinary: Positive: normal Extremities: Absent: edema Results 12/04/21 03:20 12/04/21 03:20 Cardiac Enzymes 12/04/21 Range/Units 03:20 AST 19 (5-40) units/L CBC 12/04/21 Range/Units 03:20 WBC 13.3 H (4.5-11.0) K/mm3 RBC 4.08 (3.65-5.03) M/mm3 Hgb 13.1 (11.8-15.2) gm/dl Hct 38.0 (35.5-45.6) % Plt Count 255 (140-440) K/mm3 Lymph # (Auto) 1.5 (1.2-5.4) K/mm3 [place] # (Auto) 0.2 (0.0-0.8) K/mm3 Eos # (Auto) 0.0 (0.0-0.4) K/mm3 Baso # (Auto) 0.1 (0.0-0.1) K/mm3 Comprehensive Metabolic Panel 12/04/21 Range/Units 03:20 Sodium 139 (137-145) mmol/L Potassium 4.2 (3.6-5.0) mmol/L Chloride 100.3 (98-107) mmol/L Carbon Dioxide 27 (22-30) mmol/L BUN 20 (9-20) mg/dL Creatinine 1.2 (0.8-1.3) mg/dL Glucose 147 H (75-100) mg/dL Calcium 9.6 (8.4-10.2) mg/dL AST 19 (5-40) units/L ALT 31 (7-56) units/L Alkaline Phosphatase 51 (35-129) units/L Total Protein 7.9 (6.3-8.2) g/dL Albumin 3.9 (3.9-5) g/dL - EKG Interpretation EKG: sinus rhythm EKG interpretations - Telemetry EKG Rhythm: Sinus Rhythm Assessment and Plan 1. Acute on chronic combined systolic and diastolic heart failure 2. Dilated cardiomyopathy 3. Presence of AICD 4. Essential hypertension 5. Hyperlipidemia 6. Chronic obstructive pulmonary disease 7. History of multiple CVAs with residual nonfluent aphasia Chest x-ray shows cardiomegaly with bilateral interstitial edema. Plan. Patient to resume home medication as well as intravenous diuretics. Echocardiogram to assess global and regional function. Lexiscan will be done prior to discharge to rule out ischemic coronary artery disease as a possible e tiology of acute decompensation. CHF education
[2021-12-04] MEDS: cefTRIAXone/NS 2 GM/100 ML 2 GM/100 ML BAG IV SCH (13:28)
--- NOTE | 2021-12-04 14:04 | Progress Note ---
<SARI BRYAN - Last Filed: 12/04/21 14:01> Assessment and Plan Assessment and plan: This is a 61-year-old male with CVA x4 and HTN admitted with acute CHF exacerbation Neuro: h/o CVA x4 with residual aphasia -Reorientation as needed -Maintain sleep-wake cycle -As needed analgesia -Continue supportive care Cardiac: Acute on chronic combined systolic and diastolic heart failure, dilated cardiomyopathy, h/o AICD in situ, HTN, HLD -Cardiology consulted, appreciate recommendations -Blood pressure monitoring per protocol -Stress test Lexiscan in the a.m. -Echocardiogram pending -Amlodipine, aspirin, Lipitor, Coreg, Isordil, Entresto -Diuresis with Lasix IV -CXR showed moderate cardiomegaly with volume overload -Admit proBNP 936 Respiratory: Acute hypoxic respiratory failure -CCM consulted, appreciate recommendations -S/p BiPAP therapy -Currently on nasal cannula -SPO2 monitor per protocol -Pulmonary hygiene -Supplemental oxygenation as needed GI: Morbid obesity -24 hours +160mL -PPI -Cardiac diet -BR: Colace -Encouraged lifestyle and dietary modifications outpatient : NAD -Monitor I&O -Renally dose medications -Avoid nephrotoxic medications ID: [id number] -Antibiotic therapy with azitho and rocephin -will DC given no leukocytosis, fevers and CXR consistent with volume overload -Monitor WBC and temperature curve Endo: NAD -Avoid hypoglycemia Heme: Elevated D-dimer -CTA chest showed no pulmonary embolism, moderate cardiomegaly -Trend CBC -Transfuse hemoglobin less than 7 -SCDs to BLE while in bed The high probability of a clinically significant, sudden or life threatening deterioration of the [cardio] system(s) required my full and direct attention, intervention and personal management. The aggregate critical care time was [60] minutes. This time is in addition to time spent performing reported procedures but includes the following: [x] Data Review and interpretation [x] Patient assessment and monitoring of vital signs [x] Documentation [x] Medication orders and management Disposition Plan: transfer to floor Total Time Spent with Patient (Minutes): 60 History Interval history: This is a 61-year-old male with CVA x4, ? CHF, and HTN who presented to the emergency department on 12/03 with complaints of shortness of breath for 1 week, diaphoresis and recent PNA s/p abx via EMS. In the emergency department patient was noted to have a oxygen saturation in the 80s with tripod positioning and inability to complete sentences and was initially placed on 10 L oxygen and subsequently started on BiPAP. Patient was admitted to the hospitalist service with consults to cardiology and [facility] with acute hypoxic respiratory failure and symptoms consistent with CHF exacerbation. Hospital course to date: 12/04: Patient has been transitioned off of BiPAP and is on nasal cannula, CTA chest negative for PE. Cardiology plans to conduct a stress test on Sunday. Echocardiogram pending. Nebulizers and steroids discontinued. Patient will be transferred to the floor. Hospitalist Physical - Constitutional Vitals: Temp Pulse Resp BP Pulse Ox 97.9 F 59 L 25 H 126/81 91 12/04/21 11:40 12/04/21 14:00 12/04/21 14:00 12/04/21 14:00 12/04/21 14:00 General appearance: Present: no acute distress, obese - EENT Eyes: Present: PERRL, EOM intact ENT: hearing intact, clear oral mucosa, dentition normal - Neck Neck: Present: normal ROM - Respiratory Respiratory effort: normal Respiratory: bilateral: diminished - Cardiovascular Rhythm: regular Heart Sounds: Present: S1 & S2. Absent: systolic murmur, diastolic murmur - Extremities Extremities: no ischemia, pulses intact, pulses symmetrical, normal temperature, normal color Extremity abnormal: edema Peripheral Pulses: within normal limits - Abdominal General gastrointestinal: soft, non-tender, non-distended, normal bowel sounds - Integumentary Integumentary: Present: warm, dry - Psychiatric Psychiatric: cooperative - Neurologic Neurologic: CNII-XII intact, no focal deficits, moves all extremities, other (expressive aphasia (mild from CVA)) - Allied Health Allied health notes reviewed: nursing Results - Labs CBC & Chem 7: 12/04/21 03:20 12/04/21 03:20 Labs: Laboratory Last Values WBC 13.3 K/mm3 (4.5-11.0) H 12/04/21 03:20 RBC 4.08 M/mm3 (3.65-5.03) 12/04/21 03:20 Hgb 13.1 gm/dl (11.8-15.2) 12/04/21 03:20 Hct 38.0 % (35.5-45.6) 12/04/21 03:20 MCV 93 fl (84-94) 12/04/21 03:20 MCH 32 pg (28-32) 12/04/21 03:20 MCHC 35 % (32-34) H 12/04/21 03:20 RDW 13.7 % (13.2-15.2) 12/04/21 03:20 Plt Count 255 K/mm3 (140-440) 12/04/21 03:20 Lymph % (Auto) 11.0 % (13.4-35.0) L 12/04/21 03:20 [place] % (Auto) 1.3 % (0.0-7.3) 12/04/21 03:20 Eos % (Auto) 0.0 % (0.0-4.3) 12/04/21 03:20 Baso % (Auto) 0.9 % (0.0-1.8) 12/04/21 03:20 Lymph # (Auto) 1.5 K/mm3 (1.2-5.4) 12/04/21 03:20 [place] # (Auto) 0.2 K/mm3 (0.0-0.8) 12/04/21 03:20 Eos # (Auto) 0.0 K/mm3 (0.0-0.4) 12/04/21 03:20 Baso # (Auto) 0.1 K/mm3 (0.0-0.1) 12/04/21 03:20 Add Manual Diff Complete 12/03/21 09:15 Total Counted 100 12/03/21 09:15 Seg Neutrophils % 86.8 % (40.0-70.0) H 12/04/21 03:20 Seg Neuts % (Manual) 93.0 % (40.0-70.0) H 12/03/21 09:15 Band Neutrophils % 0 % 12/03/21 09:15 Lymphocytes % (Manual) 7.0 % (13.4-35.0) L 12/03/21 09:15 Reactive Lymphs % (Man) 0 % 12/03/21 09:15 Monocytes % (Manual) 0 % (0.0-7.3) 12/03/21 09:15 Eosinophils % (Manual) 0 % (0.0-4.3) 12/03/21 09:15 Basophils % (Manual) 0 % (0.0-1.8) 12/03/21 09:15 Metamyelocytes % 0 % 12/03/21 09:15 Myelocytes % 0 % 12/03/21 09:15 Promyelocytes % 0 % 12/03/21 09:15 Blast Cells % 0 % 12/03/21 09:15 Nucleated RBC % Not Reportable 12/03/21 09:15 Seg Neutrophils # 11.5 K/mm3 (1.8-7.7) H 12/04/21 03:20 Seg Neutrophils # Man 10.3 K/mm3 (1.8-7.7) H 12/03/21 09:15 Band Neutrophils # 0.0 K/mm3 12/03/21 09:15 Lymphocytes # (Manual) 0.8 K/mm3 (1.2-5.4) L 12/03/21 09:15 Abs React Lymphs (Man) 0.0 K/mm3 12/03/21 09:15 Monocytes # (Manual) 0.0 K/mm3 (0.0-0.8) 12/03/21 09:15 Eosinophils # (Manual) 0.0 K/mm3 (0.0-0.4) 12/03/21 09:15 Basophils # (Manual) 0.0 K/mm3 (0.0-0.1) 12/03/21 09:15 Metamyelocytes # 0.0 K/mm3 12/03/21 09:15 Myelocytes # 0.0 K/mm3 12/03/21 09:15 Promyelocytes # 0.0 K/mm3 12/03/21 09:15 Blast Cells # 0.0 K/mm3 12/03/21 09:15 WBC Morphology Not Reportable 12/03/21 09:15 Hypersegmented Neuts Not Reportable 12/03/21 09:15 Hyposegmented Neuts Not Reportable 12/03/21 09:15 Hypogranular Neuts Not Reportable 12/03/21 09:15 Smudge Cells Not Reportable 12/03/21 09:15 Toxic Granulation 1+ 12/03/21 09:15 Toxic Vacuolation Not Reportable 12/03/21 09:15 Dohle Bodies Not Reportable 12/03/21 09:15 Pelger-Huet Anomaly Not Reportable 12/03/21 09:15 Delvin Rods Not Reportable 12/03/21 09:15 Platelet Estimate Consistent w auto 12/03/21 09:15 Clumped Platelets Rare 12/03/21 09:15 Plt Clumps, EDTA Not Reportable 12/03/21 09:15 Large Platelets Not Reportable 12/03/21 09:15 Giant Platelets Not Reportable 12/03/21 09:15 Platelet Satelliting Not Reportable 12/03/21 09:15 Plt Morphology Comment Not Reportable 12/03/21 09:15 RBC Morphology Normal 12/03/21 09:15 Dimorphic RBCs Not Reportable 12/03/21 09:15 Polychromasia Not Reportable 12/03/21 09:15 Hypochromasia Not Reportable 12/03/21 09:15 Poikilocytosis Not Reportable 12/03/21 09:15 Anisocytosis Not Reportable 12/03/21 09:15 Microcytosis Not Reportable 12/03/21 09:15 Macrocytosis Not Reportable 12/03/21 09:15 Spherocytes Not Reportable 12/03/21 09:15 Pappenheimer Bodies Not Reportable 12/03/21 09:15 Sickle Cells Not Reportable 12/03/21 09:15 Target Cells Not Reportable 12/03/21 09:15 Tear Drop Cells Not Reportable 12/03/21 09:15 Ovalocytes Not Reportable 12/03/21 09:15 Helmet Cells Not Reportable 12/03/21 09:15 [place] Bodies Not Reportable 12/03/21 09:15 [place] Rings Not Reportable 12/03/21 09:15 Bhaskar Cells Not Reportable 12/03/21 09:15 Bite Cells Not Reportable 12/03/21 09:15 Crenated Cell Not Reportable 12/03/21 09:15 Elliptocytes Not Reportable 12/03/21 09:15 Acanthocytes (Spur) Not Reportable 12/03/21 09:15 Rouleaux Not Reportable 12/03/21 09:15 Hemoglobin C Crystals Not Reportable 12/03/21 09:15 Schistocytes Not Reportable 12/03/21 09:15 Malaria parasites Not Reportable 12/03/21 09:15 Madan Bodies Not Reportable 12/03/21 09:15 Hem Pathologist Commnt No 12/03/21 09:15 D-Dimer 1577.07 ng/mlDDU (0-234) H 12/03/21 12:31 ABG pH 7.340 pH Units (7.350-7.450) L 12/03/21 08:55 ABG pCO2 47.1 mm Hg 12/03/21 08:55 ABG pO2 91.1 mm Hg (80.0-90.0) H 12/03/21 08:55 ABG HCO3 24.8 mmol/L (20.0-26.0) 12/03/21 08:55 ABG O2 Saturation 96.7 % (95.0-99.0) 12/03/21 08:55 ABG O2 Content 17.7 (0.0-44) 12/03/21 08:55 ABG Base Excess -1.3 mmol/L (-2.0-3.0) 12/03/21 08:55 ABG Hemoglobin 13.2 gm/dl (14.0-18.0) L 12/03/21 08:55 ABG Carboxyhemoglobin 1.2 % (0.0-5.0) 12/03/21 08:55 ABG Methemoglobin 0.5 % (0.0-1.5) 12/03/21 08:55 Oxyhemoglobin 95.1 % (95.0-99.0) 12/03/21 08:55 FiO2 40 % 12/03/21 08:55 Sodium 139 mmol/L (137-145) 12/04/21 03:20 Potassium 4.2 mmol/L (3.6-5.0) 12/04/21 03:20 Chloride 100.3 mmol/L (98-107) 12/04/21 03:20 Carbon Dioxide 27 mmol/L (22-30) 12/04/21 03:20 Anion Gap 16 mmol/L 12/04/21 03:20 BUN 20 mg/dL (9-20) 12/04/21 03:20 Creatinine 1.2 mg/dL (0.8-1.3) 12/04/21 03:20 Estimated GFR > 60 ml/min 12/04/21 03:20 BUN/Creatinine Ratio 17 % 12/04/21 03:20 Glucose 147 mg/dL (75-100) H 12/04/21 03:20 POC Glucose 147 mg/dL (70-105) H 12/03/21 20:59 Hemoglobin A1c 5.8 % (4-6) 12/03/21 11:25 Calcium 9.6 mg/dL (8.4-10.2) 12/04/21 03:20 Total Bilirubin 0.20 mg/dL (0.1-1.2) 12/04/21 03:20 AST 19 units/L (5-40) 12/04/21 03:20 ALT 31 units/L (7-56) 12/04/21 03:20 Alkaline Phosphatase 51 units/L (35-129) 12/04/21 03:20 NT-Pro-B Natriuret Pep 936.6 pg/mL (0-900) H 12/03/21 11:25 Total Protein 7.9 g/dL (6.3-8.2) 12/04/21 03:20 Albumin 3.9 g/dL (3.9-5) 12/04/21 03:20 Albumin/Globulin Ratio 1.0 % 12/04/21 03:20 Koroma/IV: Voiding Method Urinal Active Medications - Current Medications Current Medications: Generic Name Dose Route Start Last Admin Trade Name Freq PRN Reason Stop Dose Admin Acetaminophen 650 mg 12/03/21 11:09 Acetaminophen 325 Mg Tab PO Q6H PRN Pain MILD(1-3)/Fever >100.5/DENSON Amlodipine Besylate 5 mg 12/04/21 10:00 12/04/21 09:56 Amlodipine 5 Mg Tab PO 5 mg QDAY FIORELLA Administration Aspirin 81 mg 12/04/21 10:00 12/04/21 09:55 Aspirin 81 Mg Tab Chew PO 81 mg DAILY FIORELLA Administration Atorvastatin Calcium 40 mg 12/03/21 22:00 12/03/21 21:00 Atorvastatin 40 Mg Tab PO 40 mg QHS FIORELLA Administration Azithromycin 500 mg 12/03/21 12:00 12/04/21 09:56 Azithromycin 250 Mg Tab PO 500 mg QDAY FIORELLA Administration Protocol Carvedilol 3.125 mg 12/03/21 22:00 12/04/21 09:56 Carvedilol 3.125 Mg Tab PO 3.125 mg BID FIORELLA Administration Dextrose 50 ml 12/03/21 11:09 Dextrose 50% In Water (25gm) 50 Ml Syringe IV Q30MIN PRN Hypoglycemia Protocol Furosemide 40 mg 12/03/21 12:00 12/04/21 09:56 Furosemide 40 Mg/4 Ml Inj IV 40 mg QDAY FIORELLA Administration Heparin Sodium (Porcine) 5,000 unit 12/03/21 14:00 12/04/21 13:28 Heparin 5,000 Unit/1 Ml Vial SUB-Q 5,000 unit Q8HR FIORELLA Administration Ceftriaxone Sodium 2 gm in 100 mls @ 200 mls/hr 12/03/21 12:00 12/04/21 13:28 Rocephin/Ns 2 Gm/100 Ml IV 200 mls/hr Q24H FIORELLA Administration Protocol Isosorbide Dinitrate 20 mg 12/04/21 10:00 12/04/21 09:56 Isosorbide Dinitrate 20 Mg Tab PO 20 mg DAILY FIORELLA Administration Naloxone HCl 0.1 mg 12/03/21 11:09 Naloxone 0.4 Mg/1 Ml Inj IV Q2MIN PRN Res Rate </= 8 or 02 SAT < 92% Ondansetron HCl 4 mg 12/03/21 11:09 Ondansetron 4 Mg/2 Ml Inj IV Q8H PRN Nausea And Vomiting Oxycodone/Acetaminophen 1 tab 12/03/21 11:09 Oxycodone /Acetaminophen 5-325mg Tab PO Q6H PRN Pain, Moderate (4-6) Sacubitril/Valsartan 1 each 12/04/21 10:00 12/04/21 09:56 Sacubitril/Valsartan 24-26 Mg Tab PO 1 each DAILY FIORELLA Administration Senna 8.6 mg 12/03/21 22:00 12/04/21 09:56 Sennosides 8.6 Mg Tab PO 8.6 mg BID FIORELLA Administration Sodium Chloride 10 ml 12/03/21 22:00 12/04/21 09:56 Sodium Chloride 0.9% 10 Ml Flush Syringe IV 10 ml BID FIORELLA Administration Sodium Chloride 10 ml 12/03/21 11:09 Sodium Chloride 0.9% 10 Ml Flush Syringe IV PRN PRN LINE FLUSH <CHADWICK THOMPSON - Last Filed: 12/05/21 07:35> Assessment and Plan Assessment and plan: I saw and evaluated the patient. I agree with the findings and the plan of care as documented in the Nurse Practitioner's~note, with the following corrections and additions. Hospitalist Physical - Constitutional Vitals: Temp Pulse Resp BP Pulse Ox 98 F 53 L 10 L 139/92 90 12/05/21 04:00 12/05/21 06:00 12/05/21 06:00 12/05/21 06:00 12/05/21 06:00 Results - Labs CBC & Chem 7: 12/05/21 04:56 12/05/21 04:56 Labs: Laboratory Last Values WBC 17.2 K/mm3 (4.5-11.0) H 12/05/21 04:56 RBC 4.22 M/mm3 (3.65-5.03) 12/05/21 04:56 Hgb 13.1 gm/dl (11.8-15.2) 12/05/21 04:56 Hct 40.0 % (35.5-45.6) 12/05/21 04:56 MCV 95 fl (84-94) H 12/05/21 04:56 MCH 31 pg (28-32) 12/05/21 04:56 MCHC 33 % (32-34) 12/05/21 04:56 RDW 13.9 % (13.2-15.2) 12/05/21 04:56 Plt Count 265 K/mm3 (140-440) 12/05/21 04:56 Lymph % (Auto) 11.0 % (13.4-35.0) L 12/04/21 03:20 [place] % (Auto) 1.3 % (0.0-7.3) 12/04/21 03:20 Eos % (Auto) 0.0 % (0.0-4.3) 12/04/21 03:20 Baso % (Auto) 0.9 % (0.0-1.8) 12/04/21 03:20 Lymph # (Auto) 1.5 K/mm3 (1.2-5.4) 12/04/21 03:20 [place] # (Auto) 0.2 K/mm3 (0.0-0.8) 12/04/21 03:20 Eos # (Auto) 0.0 K/mm3 (0.0-0.4) 12/04/21 03:20 Baso # (Auto) 0.1 K/mm3 (0.0-0.1) 12/04/21 03:20 Add Manual Diff Complete 12/03/21 09:15 Total Counted 100 12/03/21 09:15 Seg Neutrophils % 86.8 % (40.0-70.0) H 12/04/21 03:20 Seg Neuts % (Manual) 93.0 % (40.0-70.0) H 12/03/21 09:15 Band Neutrophils % 0 % 12/03/21 09:15 Lymphocytes % (Manual) 7.0 % (13.4-35.0) L 12/03/21 09:15 Reactive Lymphs % (Man) 0 % 12/03/21 09:15 Monocytes % (Manual) 0 % (0.0-7.3) 12/03/21 09:15 Eosinophils % (Manual) 0 % (0.0-4.3) 12/03/21 09:15 Basophils % (Manual) 0 % (0.0-1.8) 12/03/21 09:15 Metamyelocytes % 0 % 12/03/21 09:15 Myelocytes % 0 % 12/03/21 09:15 Promyelocytes % 0 % 12/03/21 09:15 Blast Cells % 0 % 12/03/21 09:15 Nucleated RBC % Not Reportable 12/03/21 09:15 Seg Neutrophils # 11.5 K/mm3 (1.8-7.7) H 12/04/21 03:20 Seg Neutrophils # Man 10.3 K/mm3 (1.8-7.7) H 12/03/21 09:15 Band Neutrophils # 0.0 K/mm3 12/03/21 09:15 Lymphocytes # (Manual) 0.8 K/mm3 (1.2-5.4) L 12/03/21 09:15 Abs React Lymphs (Man) 0.0 K/mm3 12/03/21 09:15 Monocytes # (Manual) 0.0 K/mm3 (0.0-0.8) 12/03/21 09:15 Eosinophils # (Manual) 0.0 K/mm3 (0.0-0.4) 12/03/21 09:15 Basophils # (Manual) 0.0 K/mm3 (0.0-0.1) 12/03/21 09:15 Metamyelocytes # 0.0 K/mm3 12/03/21 09:15 Myelocytes # 0.0 K/mm3 12/03/21 09:15 Promyelocytes # 0.0 K/mm3 12/03/21 09:15 Blast Cells # 0.0 K/mm3 12/03/21 09:15 WBC Morphology Not Reportable 12/03/21 09:15 Hypersegmented Neuts Not Reportable 12/03/21 09:15 Hyposegmented Neuts Not Reportable 12/03/21 09:15 Hypogranular Neuts Not Reportable 12/03/21 09:15 Smudge Cells Not Reportable 12/03/21 09:15 Toxic Granulation 1+ 12/03/21 09:15 Toxic Vacuolation Not Reportable 12/03/21 09:15 Dohle Bodies Not Reportable 12/03/21 09:15 Pelger-Huet Anomaly Not Reportable 12/03/21 09:15 Delvin Rods Not Reportable 12/03/21 09:15 Platelet Estimate Consistent w auto 12/03/21 09:15 Clumped Platelets Rare 12/03/21 09:15 Plt Clumps, EDTA Not Reportable 12/03/21 09:15 Large Platelets Not Reportable 12/03/21 09:15 Giant Platelets Not Reportable 12/03/21 09:15 Platelet Satelliting Not Reportable 12/03/21 09:15 Plt Morphology Comment Not Reportable 12/03/21 09:15 RBC Morphology Normal 12/03/21 09:15 Dimorphic RBCs Not Reportable 12/03/21 09:15 Polychromasia Not Reportable 12/03/21 09:15 Hypochromasia Not Reportable 12/03/21 09:15 Poikilocytosis Not Reportable 12/03/21 09:15 Anisocytosis Not Reportable 12/03/21 09:15 Microcytosis Not Reportable 12/03/21 09:15 Macrocytosis Not Reportable 12/03/21 09:15 Spherocytes Not Reportable 12/03/21 09:15 Pappenheimer Bodies Not Reportable 12/03/21 09:15 Sickle Cells Not Reportable 12/03/21 09:15 Target Cells Not Reportable 12/03/21 09:15 Tear Drop Cells Not Reportable 12/03/21 09:15 Ovalocytes Not Reportable 12/03/21 09:15 Helmet Cells Not Reportable 12/03/21 09:15 [place] Bodies Not Reportable 12/03/21 09:15 [place] Rings Not Reportable 12/03/21 09:15 Bhaskar Cells Not Reportable 12/03/21 09:15 Bite Cells Not Reportable 12/03/21 09:15 Crenated Cell Not Reportable 12/03/21 09:15 Elliptocytes Not Reportable 12/03/21 09:15 Acanthocytes (Spur) Not Reportable 12/03/21 09:15 Rouleaux Not Reportable 12/03/21 09:15 Hemoglobin C Crystals Not Reportable 12/03/21 09:15 Schistocytes Not Reportable 12/03/21 09:15 Malaria parasites Not Reportable 12/03/21 09:15 Madan Bodies Not Reportable 12/03/21 09:15 Hem Pathologist Commnt No 12/03/21 09:15 D-Dimer 1577.07 ng/mlDDU (0-234) H 12/03/21 12:31 ABG pH 7.340 pH Units (7.350-7.450) L 12/03/21 08:55 ABG pCO2 47.1 mm Hg 12/03/21 08:55 ABG pO2 91.1 mm Hg (80.0-90.0) H 12/03/21 08:55 ABG HCO3 24.8 mmol/L (20.0-26.0) 12/03/21 08:55 ABG O2 Saturation 96.7 % (95.0-99.0) 12/03/21 08:55 ABG O2 Content 17.7 (0.0-44) 12/03/21 08:55 ABG Base Excess -1.3 mmol/L (-2.0-3.0) 12/03/21 08:55 ABG Hemoglobin 13.2 gm/dl (14.0-18.0) L 12/03/21 08:55 ABG Carboxyhemoglobin 1.2 % (0.0-5.0) 12/03/21 08:55 ABG Methemoglobin 0.5 % (0.0-1.5) 12/03/21 08:55 Oxyhemoglobin 95.1 % (95.0-99.0) 12/03/21 08:55 FiO2 40 % 12/03/21 08:55 Sodium 140 mmol/L (137-145) 12/05/21 04:56 Potassium 4.0 mmol/L (3.6-5.0) 12/05/21 04:56 Chloride 103.2 mmol/L (98-107) 12/05/21 04:56 Carbon Dioxide 26 mmol/L (22-30) 12/05/21 04:56 Anion Gap 15 mmol/L 12/05/21 04:56 BUN 21 mg/dL (9-20) H 12/05/21 04:56 Creatinine 1.2 mg/dL (0.8-1.3) 12/05/21 04:56 Estimated GFR > 60 ml/min 12/05/21 04:56 BUN/Creatinine Ratio 18 % 12/05/21 04:56 Glucose 112 mg/dL (75-100) H 12/05/21 04:56 POC Glucose 147 mg/dL (70-105) H 12/03/21 20:59 Hemoglobin A1c 5.8 % (4-6) 12/03/21 11:25 Calcium 9.2 mg/dL (8.4-10.2) 12/05/21 04:56 Phosphorus 3.70 mg/dL (2.5-4.5) 12/05/21 04:56 Magnesium 2.20 mg/dL (1.7-2.3) 12/05/21 04:56 Total Bilirubin 0.20 mg/dL (0.1-1.2) 12/04/21 03:20 AST 19 units/L (5-40) 12/04/21 03:20 ALT 31 units/L (7-56) 12/04/21 03:20 Alkaline Phosphatase 51 units/L (35-129) 12/04/21 03:20 NT-Pro-B Natriuret Pep 936.6 pg/mL (0-900) H 12/03/21 11:25 Total Protein 7.9 g/dL (6.3-8.2) 12/04/21 03:20 Albumin 3.9 g/dL (3.9-5) 12/04/21 03:20 Albumin/Globulin Ratio 1.0 % 12/04/21 03:20 Koroma/IV: Voiding Method Urinal Active Medications - Current Medications Current Medications: Generic Name Dose Route Start Last Admin Trade Name Freq PRN Reason Stop Dose Admin Acetaminophen 650 mg 12/03/21 11:09 Acetaminophen 325 Mg Tab PO Q6H PRN Pain MILD(1-3)/Fever >100.5/[place]SON Amlodipine Besylate 5 mg 12/04/21 10:00 12/04/21 09:56 Amlodipine 5 Mg Tab PO 5 mg QDAY FIORELLA Administration Aspirin 81 mg 12/04/21 10:00 12/04/21 09:55 Aspirin 81 Mg Tab Chew PO 81 mg DAILY FIORELLA Administration Atorvastatin Calcium 40 mg 12/03/21 22:00 12/04/21 20:59 Atorvastatin 40 Mg Tab PO 40 mg QHS FIORELLA Administration Azithromycin 500 mg 12/03/21 12:00 12/04/21 09:56 Azithromycin 250 Mg Tab PO 500 mg QDAY FIORELLA Administration Protocol Carvedilol 3.125 mg 12/03/21 22:00 12/04/21 20:59 Carvedilol 3.125 Mg Tab PO 3.125 mg BID FIORELLA Administration Dextrose 50 ml 12/03/21 11:09 Dextrose 50% In Water (25gm) 50 Ml Syringe IV Q30MIN PRN Hypoglycemia Protocol Furosemide 40 mg 12/03/21 12:00 12/04/21 09:56 Furosemide 40 Mg/4 Ml Inj IV 40 mg QDAY FIORELLA Administration Heparin Sodium (Porcine) 5,000 unit 12/03/21 14:00 12/05/21 05:31 Heparin 5,000 Unit/1 Ml Vial SUB-Q 5,000 unit Q8HR FIORELLA Administration Ceftriaxone Sodium 2 gm in 100 mls @ 200 mls/hr 12/03/21 12:00 12/04/21 13:28 Rocephin/Ns 2 Gm/100 Ml IV 200 mls/hr Q24H FIORELLA Administration Protocol Isosorbide Dinitrate 20 mg 12/04/21 10:00 12/04/21 09:56 Isosorbide Dinitrate 20 Mg Tab PO 20 mg DAILY FIORELLA Administration Naloxone HCl 0.1 mg 12/03/21 11:09 Naloxone 0.4 Mg/1 Ml Inj IV Q2MIN PRN Res Rate </= 8 or 02 SAT < 92% Ondansetron HCl 4 mg 12/03/21 11:09 Ondansetron 4 Mg/2 Ml Inj IV Q8H PRN Nausea And Vomiting Oxycodone/Acetaminophen 1 tab 12/03/21 11:09 Oxycodone /Acetaminophen 5-325mg Tab PO Q6H PRN Pain, Moderate (4-6) Sacubitril/Valsartan 1 each 12/04/21 10:00 12/04/21 09:56 Sacubitril/Valsartan 24-26 Mg Tab PO 1 each DAILY FIORELLA Administration Senna 8.6 mg 12/03/21 22:00 12/04/21 20:59 Sennosides 8.6 Mg Tab PO Not Given BID FIORELLA Sodium Chloride 10 ml 12/03/21 22:00 12/04/21 20:59 Sodium Chloride 0.9% 10 Ml Flush Syringe IV 10 ml BID FIORELLA Administration Sodium Chloride 10 ml 12/03/21 11:09 Sodium Chloride 0.9% 10 Ml Flush Syringe IV PRN PRN LINE FLUSH
[2021-12-05 05:12] LABS: Hemoglobin 13.1 gm/dl (11.8-15.2); Mean Corpuscular HGB Conc 33 % (32-34); Mean Corpuscular Volume 95 fl (84-94); Platelet Count 265 K/mm3 (140-440); Red Blood Count 4.22 M/mm3 (3.65-5.03); Red Cell Distribution Width 13.9 % (13.2-15.2)
[2021-12-05 05:31] LABS: BUN/Creatinine Ratio 18; Blood Urea Nitrogen 21 mg/dL (9-20); Calcium 9.2 mg/dL (8.4-10.2); Hemolysis Index 56
[2021-12-05] MEDS: HEPARIN 5,000 UNIT/1 ML VIAL SUB-Q SCH ×3 (05:31→21:43)
--- NOTE | 2021-12-05 09:56 | Progress Note ---
Assessment and Plan 61 y/o male with acute respiratory failure. 12/05/21: Pulm status is improved and stable. Encouraged patient to have full work up by pulm back in his home. Will sign off. Call if questions. 12/04/21: Continue diuresis. Wean Fio2 to off. Transfer to floor, telemetry. 1. Elevated BNP 2. Continue diuresis 3. stop steroids 4. Wean FiO2 as tolerated. Subjective Date of service: 12/05/21 Interval history: No acute events. Wants to go home. Stable on room air. Per patient, has been moving around in the room and feels ok. Objective Vital Signs - 12hr 12/04/21 12/04/21 12/05/21 22:01 23:01 00:00 Temperature 98.3 F Pulse Rate 82 56 L Respiratory 19 9 L Rate Blood Pressure 116/73 133/95 O2 Sat by Pulse 89 90 95 Oximetry 12/05/21 12/05/21 12/05/21 00:01 01:01 01:28 Temperature Pulse Rate 60 55 L 70 Respiratory 18 17 Rate Blood Pressure 143/93 134/79 O2 Sat by Pulse 94 91 Oximetry 12/05/21 12/05/21 12/05/21 02:00 03:00 04:00 Temperature 98 F Pulse Rate 54 L 53 L Respiratory 15 13 Rate Blood Pressure 122/87 122/87 O2 Sat by Pulse 94 98 95 Oximetry 12/05/21 12/05/21 12/05/21 04:01 05:00 06:00 Temperature Pulse Rate 54 L 59 L 53 L Respiratory 17 12 10 L Rate Blood Pressure 133/97 131/99 139/92 O2 Sat by Pulse 95 90 90 Oximetry 12/05/21 12/05/21 07:01 08:00 Temperature Pulse Rate 59 L 58 L Respiratory 18 13 Rate Blood Pressure 149/102 149/96 O2 Sat by Pulse 93 92 Oximetry Constitutional: no acute distress, alert Eyes: non-icteric Neck: supple Effort: mildly labored Ascultation: Bilateral: diminished breath sounds Percussion: Bilateral: not dull Tactile fremitus: Bilateral: normal Cardiovascular: regular rate and rhythm Gastrointestinal: normoactive bowel sounds Neurologic: normal mental status, non-focal exam Psychiatric: mood appropriate, affect normal CBC and BMP: 12/05/21 04:56 12/05/21 04:56 ABG, PT/INR, D-dimer: ABG ABG pH 7.340 pH Units (7.350-7.450) L 12/03/21 08:55 ABG pCO2 47.1 mm Hg 12/03/21 08:55 ABG pO2 91.1 mm Hg (80.0-90.0) H 12/03/21 08:55 ABG O2 Saturation 96.7 % (95.0-99.0) 12/03/21 08:55 PT/INR, D-dimer D-Dimer 1577.07 ng/mlDDU (0-234) H 12/03/21 12:31 Abnormal lab findings: Abnormal Labs 12/03/21 12/03/21 12/03/21 08:55 09:15 09:15 WBC 11.1 H MCV 95 H MCHC Lymph % (Auto) Seg Neutrophils % Seg Neuts % (Manual) 93.0 H Lymphocytes % (Manual) 7.0 L Seg Neutrophils # Seg Neutrophils # Man 10.3 H Lymphocytes # (Manual) 0.8 L D-Dimer ABG pH 7.340 L ABG pO2 91.1 H ABG Hemoglobin 13.2 L BUN 23 H Glucose 195 H POC Glucose NT-Pro-B Natriuret Pep 12/03/21 12/03/21 12/03/21 11:25 12:31 20:59 WBC MCV MCHC Lymph % (Auto) Seg Neutrophils % Seg Neuts % (Manual) Lymphocytes % (Manual) Seg Neutrophils # Seg Neutrophils # Man Lymphocytes # (Manual) D-Dimer 1577.07 H ABG pH ABG pO2 ABG Hemoglobin BUN Glucose POC Glucose 147 H NT-Pro-B Natriuret Pep 936.6 H 12/04/21 12/04/21 12/05/21 03:20 03:20 04:56 WBC 13.3 H 17.2 H MCV 95 H MCHC 35 H Lymph % (Auto) 11.0 L Seg Neutrophils % 86.8 H Seg Neuts % (Manual) Lymphocytes % (Manual) Seg Neutrophils # 11.5 H Seg Neutrophils # Man Lymphocytes # (Manual) D-Dimer ABG pH ABG pO2 ABG Hemoglobin BUN Glucose 147 H POC Glucose NT-Pro-B Natriuret Pep 12/05/21 04:56 WBC MCV MCHC Lymph % (Auto) Seg Neutrophils % Seg Neuts % (Manual) Lymphocytes % (Manual) Seg Neutrophils # Seg Neutrophils # Man Lymphocytes # (Manual) D-Dimer ABG pH ABG pO2 ABG Hemoglobin BUN 21 H Glucose 112 H POC Glucose NT-Pro-B Natriuret Pep
--- NOTE | 2021-12-05 09:58 | Vascular Lab Report ---
DUPLEX DOPPLER LOWER EXTREMITY VEINS, BILATERAL INDICATION / CLINICAL INFORMATION: dvt. CHF and morbid obesity. TECHNIQUE: Duplex doppler imaging was performed through the veins of both lower extremities using jose raul ous compression and other maneuvers. COMPARISON: None available. FINDINGS: RIGHT COMMON FEMORAL VEIN: Negative. RIGHT FEMORAL VEIN: Negative. RIGHT POPLITEAL VEIN: Negative. RIGHT CALF VEINS: Negative. LEFT COMMON FEMORAL VEIN: Negative. LEFT FEMORAL VEIN: Negative. LEFT POPLITEAL VEIN: Negative. LEFT CALF VEINS: Negative. ADDITIONAL FINDINGS: None. IMPRESSION: 1. No sonographic evidence for DVT in either lower extremity. Signer Name: Marcus Rodriguez MD Signed: 12/05/2021 9:54 AM Workstation Name: [employer]
--- NOTE | 2021-12-05 10:27 | Progress Note ---
<STACEY BILLS - Last Filed: 12/05/21 16:58> Assessment and Plan Assessment and plan: This is a 61-year-old male with CVA x4, HTN, CHF, and dilated cardiomyopathy s/p AICD placement admitted with acute CHF exacerbation Hospital course to date: 12/04: Patient has been transitioned off of BiPAP and is on nasal cannula, CTA chest negative for PE. Cardiology plans to conduct a stress test on Sunday. Echocardiogram pending. Nebulizers and steroids discontinued. Patient will be transferred to the floor. 12/05: PRO overnight. VSS. Echo reviewed, EF is 15 to 20%, continue IV lasix. Plan for possible stress test today per cardiology. Patient remains afebrile, on RA, and hemodynamicaly stable. Leukocytosis this am, most likely related to IV steroids. Will hold IV Abx for now, panculture if febrile. Assessment and Plan #Acute on Chronic Systolic and Diastolic Heart Failure, #Dilated Cardiomyopathy s/p AICD #H/o HTN, HLD - Presented with SOBX1 week, tripoding, and unable to complete sentences requiring Bipap - On IV Lasix - 2D echo reviewed, EF 15 to 20% - Cardiology consulted, appreciate recommendations - Plan for possible stress test this am - Remains SB to SR on herlinda monitor, VSS - Continue Amlodipine, aspirin, Lipitor, Coreg, Isordil, Entresto, and IV Lasix - Continue blood pressure monitor per protocol - Maintain MAP above 65 #Acute Hypoxic Respiratory Failure #Fluid Overload - Presented with SOB, tripoding - CXR showed moderate cardiomegaly with volume overload - CTA chest also reviewed, no evidence of PE. Significant improvement in lungs aeration, residual bibasilar atelectasis reported. See report for detail - S/p continuous Bipap - S/p IV lasix and IV Steroids, patient is stable on RA this am - CCM consulted, appreciate recommendations - PRN O2 supplementation as needed - Bipap at night - Pulmonary hygiene and PRN nebx treatment - Continue SPO2 monitoring for SPO2 goal above 92% - Follow up outpatient for ARIADNA eval/Sleep study #Leukocytosis - Anoop in WBCs this am, most likely secondary to IV steroids - Patient remains afebrile. With significant improvement in respiratory status post IV lasix - CXR consistent with fluid overload - CTA chest also reviewed confirmed Significant improvement in lungs aeration, residual bibasilar atelectasis reported - IV steroid D/Oh. Will hold empiric IV abx for now - Panculture if patient is febrile - Continue to trend CBC #Morbid Obesity - BMI 37.5 - Encouraged lifestyle and dietary modifications, increase physical activity at discharge #Elevated D-Dimer - CTA chest showed no pulmonary embolism, moderate cardiomegaly - BLE doppler negative DVT - SCDs to BLE while in bed - Heparin SubQ #GI/DVT Prophylaxis - PPI- Protonix - Heparin SubQ - SCDs to BLE while in bed #Advance Care Planning - Disease education data, care plan, diagnoses, and prognosis were discussed with patient at the bedside. Patient is a FULL code. Patient acknowledged understanding and agreed with current care plan. The high probability of a clinically significant, sudden or life threatening deterioration of the [cardio] system(s) required my full and direct attention, intervention and personal management. The aggregate critical care time was [60] minutes. This time is in addition to time spent performing reported procedures but includes the following: [x] Data Review and interpretation [x] Patient assessment and monitoring of vital signs [x] Documentation [x] Medication orders and management Disposition Plan: IMCU Total Time Spent with Patient (Minutes): 60 History Interval history: Patient seen and examined at the bedside. Fully AAO, on RA, denied any pain nor any discomfort at this time, VSS. Patient is NPO since after midnight for possible procedure today. Hospitalist Physical - Constitutional Vitals: Temp Pulse Resp BP Pulse Ox 98 F 58 L 13 149/96 92 12/05/21 04:00 12/05/21 08:00 12/05/21 08:00 12/05/21 08:00 12/05/21 08:00 General appearance: Present: no acute distress, well-nourished, obese - EENT Eyes: Present: PERRL, EOM intact ENT: hearing intact - Neck Neck: Present: normal ROM - Respiratory Respiratory effort: normal Respiratory: bilateral: diminished - Cardiovascular Rhythm: regular Heart Sounds: Present: S1 & S2 - Extremities Extremities: no ischemia, pulses intact, pulses symmetrical Extremity abnormal: edema - Peripheral Assessment Generalized Edema Type: Non-pitting Edema Degree: 1+ Capillary Refill: < 3 seconds Skin Temperature: Warm Peripheral Pulses: within normal limits - Abdominal General gastrointestinal: soft, non-distended, normal bowel sounds - Integumentary Integumentary: Present: warm, dry - Psychiatric Psychiatric: appropriate mood/affect, cooperative - Neurologic Neurologic: CNII-XII intact, moves all extremities - Allied Health Allied health notes reviewed: nursing, case management Results - Labs CBC & Chem 7: 12/05/21 04:56 12/05/21 04:56 Labs: Laboratory Last Values WBC 17.2 K/mm3 (4.5-11.0) H 12/05/21 04:56 RBC 4.22 M/mm3 (3.65-5.03) 12/05/21 04:56 Hgb 13.1 gm/dl (11.8-15.2) 12/05/21 04:56 Hct 40.0 % (35.5-45.6) 12/05/21 04:56 MCV 95 fl (84-94) H 12/05/21 04:56 MCH 31 pg (28-32) 12/05/21 04:56 MCHC 33 % (32-34) 12/05/21 04:56 RDW 13.9 % (13.2-15.2) 12/05/21 04:56 Plt Count 265 K/mm3 (140-440) 12/05/21 04:56 Lymph % (Auto) 11.0 % (13.4-35.0) L 12/04/21 03:20 [place] % (Auto) 1.3 % (0.0-7.3) 12/04/21 03:20 Eos % (Auto) 0.0 % (0.0-4.3) 12/04/21 03:20 Baso % (Auto) 0.9 % (0.0-1.8) 12/04/21 03:20 Lymph # (Auto) 1.5 K/mm3 (1.2-5.4) 12/04/21 03:20 [place] # (Auto) 0.2 K/mm3 (0.0-0.8) 12/04/21 03:20 Eos # (Auto) 0.0 K/mm3 (0.0-0.4) 12/04/21 03:20 Baso # (Auto) 0.1 K/mm3 (0.0-0.1) 12/04/21 03:20 Add Manual Diff Complete 12/03/21 09:15 Total Counted 100 12/03/21 09:15 Seg Neutrophils % 86.8 % (40.0-70.0) H 12/04/21 03:20 Seg Neuts % (Manual) 93.0 % (40.0-70.0) H 12/03/21 09:15 Band Neutrophils % 0 % 12/03/21 09:15 Lymphocytes % (Manual) 7.0 % (13.4-35.0) L 12/03/21 09:15 Reactive Lymphs % (Man) 0 % 12/03/21 09:15 Monocytes % (Manual) 0 % (0.0-7.3) 12/03/21 09:15 Eosinophils % (Manual) 0 % (0.0-4.3) 12/03/21 09:15 Basophils % (Manual) 0 % (0.0-1.8) 12/03/21 09:15 Metamyelocytes % 0 % 12/03/21 09:15 Myelocytes % 0 % 12/03/21 09:15 Promyelocytes % 0 % 12/03/21 09:15 Blast Cells % 0 % 12/03/21 09:15 Nucleated RBC % Not Reportable 12/03/21 09:15 Seg Neutrophils # 11.5 K/mm3 (1.8-7.7) H 12/04/21 03:20 Seg Neutrophils # Man 10.3 K/mm3 (1.8-7.7) H 12/03/21 09:15 Band Neutrophils # 0.0 K/mm3 12/03/21 09:15 Lymphocytes # (Manual) 0.8 K/mm3 (1.2-5.4) L 12/03/21 09:15 Abs React Lymphs (Man) 0.0 K/mm3 12/03/21 09:15 Monocytes # (Manual) 0.0 K/mm3 (0.0-0.8) 12/03/21 09:15 Eosinophils # (Manual) 0.0 K/mm3 (0.0-0.4) 12/03/21 09:15 Basophils # (Manual) 0.0 K/mm3 (0.0-0.1) 12/03/21 09:15 Metamyelocytes # 0.0 K/mm3 12/03/21 09:15 Myelocytes # 0.0 K/mm3 12/03/21 09:15 Promyelocytes # 0.0 K/mm3 12/03/21 09:15 Blast Cells # 0.0 K/mm3 12/03/21 09:15 WBC Morphology Not Reportable 12/03/21 09:15 Hypersegmented Neuts Not Reportable 12/03/21 09:15 Hyposegmented Neuts Not Reportable 12/03/21 09:15 Hypogranular Neuts Not Reportable 12/03/21 09:15 Smudge Cells Not Reportable 12/03/21 09:15 Toxic Granulation 1+ 12/03/21 09:15 Toxic Vacuolation Not Reportable 12/03/21 09:15 Dohle Bodies Not Reportable 12/03/21 09:15 Pelger-Huet Anomaly Not Reportable 12/03/21 09:15 Delvin Rods Not Reportable 12/03/21 09:15 Platelet Estimate Consistent w auto 12/03/21 09:15 Clumped Platelets Rare 12/03/21 09:15 Plt Clumps, EDTA Not Reportable 12/03/21 09:15 Large Platelets Not Reportable 12/03/21 09:15 Giant Platelets Not Reportable 12/03/21 09:15 Platelet Satelliting Not Reportable 12/03/21 09:15 Plt Morphology Comment Not Reportable 12/03/21 09:15 RBC Morphology Normal 12/03/21 09:15 Dimorphic RBCs Not Reportable 12/03/21 09:15 Polychromasia Not Reportable 12/03/21 09:15 Hypochromasia Not Reportable 12/03/21 09:15 Poikilocytosis Not Reportable 12/03/21 09:15 Anisocytosis Not Reportable 12/03/21 09:15 Microcytosis Not Reportable 12/03/21 09:15 Macrocytosis Not Reportable 12/03/21 09:15 Spherocytes Not Reportable 12/03/21 09:15 Pappenheimer Bodies Not Reportable 12/03/21 09:15 Sickle Cells Not Reportable 12/03/21 09:15 Target Cells Not Reportable 12/03/21 09:15 Tear Drop Cells Not Reportable 12/03/21 09:15 Ovalocytes Not Reportable 12/03/21 09:15 Helmet Cells Not Reportable 12/03/21 09:15 Ring-[place] Bodies Not Reportable 12/03/21 09:15 [place] Rings Not Reportable 12/03/21 09:15 Bhaskar Cells Not Reportable 12/03/21 09:15 Bite Cells Not Reportable 12/03/21 09:15 Crenated Cell Not Reportable 12/03/21 09:15 Elliptocytes Not Reportable 12/03/21 09:15 Acanthocytes (Spur) Not Reportable 12/03/21 09:15 Rouleaux Not Reportable 12/03/21 09:15 Hemoglobin C Crystals Not Reportable 12/03/21 09:15 Schistocytes Not Reportable 12/03/21 09:15 Malaria parasites Not Reportable 12/03/21 09:15 Madan Bodies Not Reportable 12/03/21 09:15 Hem Pathologist Commnt No 12/03/21 09:15 D-Dimer 1577.07 ng/mlDDU (0-234) H 12/03/21 12:31 ABG pH 7.340 pH Units (7.350-7.450) L 12/03/21 08:55 ABG pCO2 47.1 mm Hg 12/03/21 08:55 ABG pO2 91.1 mm Hg (80.0-90.0) H 12/03/21 08:55 ABG HCO3 24.8 mmol/L (20.0-26.0) 12/03/21 08:55 ABG O2 Saturation 96.7 % (95.0-99.0) 12/03/21 08:55 ABG O2 Content 17.7 (0.0-44) 12/03/21 08:55 ABG Base Excess -1.3 mmol/L (-2.0-3.0) 12/03/21 08:55 ABG Hemoglobin 13.2 gm/dl (14.0-18.0) L 12/03/21 08:55 ABG Carboxyhemoglobin 1.2 % (0.0-5.0) 12/03/21 08:55 ABG Methemoglobin 0.5 % (0.0-1.5) 12/03/21 08:55 Oxyhemoglobin 95.1 % (95.0-99.0) 12/03/21 08:55 FiO2 40 % 12/03/21 08:55 Sodium 140 mmol/L (137-145) 12/05/21 04:56 Potassium 4.0 mmol/L (3.6-5.0) 12/05/21 04:56 Chloride 103.2 mmol/L (98-107) 12/05/21 04:56 Carbon Dioxide 26 mmol/L (22-30) 12/05/21 04:56 Anion Gap 15 mmol/L 12/05/21 04:56 BUN 21 mg/dL (9-20) H 12/05/21 04:56 Creatinine 1.2 mg/dL (0.8-1.3) 12/05/21 04:56 Estimated GFR > 60 ml/min 12/05/21 04:56 BUN/Creatinine Ratio 18 % 12/05/21 04:56 Glucose 112 mg/dL (75-100) H 12/05/21 04:56 POC Glucose 147 mg/dL (70-105) H 12/03/21 20:59 Hemoglobin A1c 5.8 % (4-6) 12/03/21 11:25 Calcium 9.2 mg/dL (8.4-10.2) 12/05/21 04:56 Phosphorus 3.70 mg/dL (2.5-4.5) 12/05/21 04:56 Magnesium 2.20 mg/dL (1.7-2.3) 12/05/21 04:56 Total Bilirubin 0.20 mg/dL (0.1-1.2) 12/04/21 03:20 AST 19 units/L (5-40) 12/04/21 03:20 ALT 31 units/L (7-56) 12/04/21 03:20 Alkaline Phosphatase 51 units/L (35-129) 12/04/21 03:20 NT-Pro-B Natriuret Pep 936.6 pg/mL (0-900) H 12/03/21 11:25 Total Protein 7.9 g/dL (6.3-8.2) 12/04/21 03:20 Albumin 3.9 g/dL (3.9-5) 12/04/21 03:20 Albumin/Globulin Ratio 1.0 % 12/04/21 03:20 Koroma/IV: Voiding Method Urinal Active Medications - Current Medications Current Medications: Generic Name Dose Route Start Last Admin Trade Name Freq PRN Reason Stop Dose Admin Acetaminophen 650 mg 12/03/21 11:09 Acetaminophen 325 Mg Tab PO Q6H PRN Pain MILD(1-3)/Fever >100.5/DENSON Amlodipine Besylate 5 mg 12/04/21 10:00 12/04/21 09:56 Amlodipine 5 Mg Tab PO 5 mg QDAY FIORELLA Administration Aspirin 81 mg 12/04/21 10:00 12/04/21 09:55 Aspirin 81 Mg Tab Chew PO 81 mg DAILY FIORELLA Administration Atorvastatin Calcium 40 mg 12/03/21 22:00 12/04/21 20:59 Atorvastatin 40 Mg Tab PO 40 mg QHS FIORELLA Administration Azithromycin 500 mg 12/03/21 12:00 12/04/21 09:56 Azithromycin 250 Mg Tab PO 12/08/21 11:59 500 mg QDAY FIORELLA Administration Protocol Carvedilol 3.125 mg 12/03/21 22:00 12/04/21 20:59 Carvedilol 3.125 Mg Tab PO 3.125 mg BID FIORELLA Administration Dextrose 50 ml 12/03/21 11:09 Dextrose 50% In Water (25gm) 50 Ml Syringe IV Q30MIN PRN Hypoglycemia Protocol Furosemide 40 mg 12/03/21 12:00 12/04/21 09:56 Furosemide 40 Mg/4 Ml Inj IV 40 mg QDAY FIORELLA Administration Heparin Sodium (Porcine) 5,000 unit 12/03/21 14:00 12/05/21 05:31 Heparin 5,000 Unit/1 Ml Vial SUB-Q 5,000 unit Q8HR FIORELLA Administration Ceftriaxone Sodium 2 gm in 100 mls @ 200 mls/hr 12/03/21 12:00 12/04/21 13:28 Rocephin/Ns 2 Gm/100 Ml IV 12/08/21 11:59 200 mls/hr Q24H FIORELLA Administration Protocol Isosorbide Dinitrate 20 mg 12/04/21 10:00 12/04/21 09:56 Isosorbide Dinitrate 20 Mg Tab PO 20 mg DAILY FIORELLA Administration Naloxone HCl 0.1 mg 12/03/21 11:09 Naloxone 0.4 Mg/1 Ml Inj IV Q2MIN PRN Res Rate </= 8 or 02 SAT < 92% Ondansetron HCl 4 mg 12/03/21 11:09 Ondansetron 4 Mg/2 Ml Inj IV Q8H PRN Nausea And Vomiting Oxycodone/Acetaminophen 1 tab 12/03/21 11:09 Oxycodone /Acetaminophen 5-325mg Tab PO Q6H PRN Pain, Moderate (4-6) Pantoprazole Sodium 40 mg 12/05/21 10:00 Pantoprazole 40 Mg Tab PO DAILY FIORELLA Sacubitril/Valsartan 1 each 12/04/21 10:00 12/04/21 09:56 Sacubitril/Valsartan 24-26 Mg Tab PO 1 each DAILY FIORELLA Administration Senna 8.6 mg 12/03/21 22:00 12/04/21 20:59 Sennosides 8.6 Mg Tab PO Not Given BID FIORELLA Sodium Chloride 10 ml 12/03/21 22:00 12/04/21 20:59 Sodium Chloride 0.9% 10 Ml Flush Syringe IV 10 ml BID FIORELLA Administration Sodium Chloride 10 ml 12/03/21 11:09 Sodium Chloride 0.9% 10 Ml Flush Syringe IV PRN PRN LINE FLUSH <CHADWICK THOMPSON - Last Filed: 12/06/21 07:22> Assessment and Plan Assessment and plan: I saw and evaluated the patient. I agree with the findings and the plan of care as documented in the Nurse Practitioner's~note, with the following corrections and additions. Hospitalist Physical - Constitutional Vitals: Temp Pulse Resp BP Pulse Ox 98.8 F 73 17 105/60 100 12/06/21 03:33 12/06/21 06:00 12/06/21 06:00 12/06/21 06:00 12/06/21 06:00 Results - Labs CBC & Chem 7: 12/06/21 04:33 12/06/21 04:33 Labs: Laboratory Last Values WBC 9.1 K/mm3 (4.5-11.0) 12/06/21 04:33 RBC 4.20 M/mm3 (3.65-5.03) 12/06/21 04:33 Hgb 13.0 gm/dl (11.8-15.2) 12/06/21 04:33 Hct 39.4 % (35.5-45.6) 12/06/21 04:33 MCV 94 fl (84-94) 12/06/21 04:33 MCH 31 pg (28-32) 12/06/21 04:33 MCHC 33 % (32-34) 12/06/21 04:33 RDW 13.6 % (13.2-15.2) 12/06/21 04:33 Plt Count 264 K/mm3 (140-440) 12/06/21 04:33 Lymph % (Auto) 11.0 % (13.4-35.0) L 12/04/21 03:20 [place] % (Auto) 1.3 % (0.0-7.3) 12/04/21 03:20 Eos % (Auto) 0.0 % (0.0-4.3) 12/04/21 03:20 Baso % (Auto) 0.9 % (0.0-1.8) 12/04/21 03:20 Lymph # (Auto) 1.5 K/mm3 (1.2-5.4) 12/04/21 03:20 [place] # (Auto) 0.2 K/mm3 (0.0-0.8) 12/04/21 03:20 Eos # (Auto) 0.0 K/mm3 (0.0-0.4) 12/04/21 03:20 Baso # (Auto) 0.1 K/mm3 (0.0-0.1) 12/04/21 03:20 Add Manual Diff Complete 12/03/21 09:15 Total Counted 100 12/03/21 09:15 Seg Neutrophils % 86.8 % (40.0-70.0) H 12/04/21 03:20 Seg Neuts % (Manual) 93.0 % (40.0-70.0) H 12/03/21 09:15 Band Neutrophils % 0 % 12/03/21 09:15 Lymphocytes % (Manual) 7.0 % (13.4-35.0) L 12/03/21 09:15 Reactive Lymphs % (Man) 0 % 12/03/21 09:15 Monocytes % (Manual) 0 % (0.0-7.3) 12/03/21 09:15 Eosinophils % (Manual) 0 % (0.0-4.3) 12/03/21 09:15 Basophils % (Manual) 0 % (0.0-1.8) 12/03/21 09:15 Metamyelocytes % 0 % 12/03/21 09:15 Myelocytes % 0 % 12/03/21 09:15 Promyelocytes % 0 % 12/03/21 09:15 Blast Cells % 0 % 12/03/21 09:15 Nucleated RBC % Not Reportable 12/03/21 09:15 Seg Neutrophils # 11.5 K/mm3 (1.8-7.7) H 12/04/21 03:20 Seg Neutrophils # Man 10.3 K/mm3 (1.8-7.7) H 12/03/21 09:15 Band Neutrophils # 0.0 K/mm3 12/03/21 09:15 Lymphocytes # (Manual) 0.8 K/mm3 (1.2-5.4) L 12/03/21 09:15 Abs React Lymphs (Man) 0.0 K/mm3 12/03/21 09:15 Monocytes # (Manual) 0.0 K/mm3 (0.0-0.8) 12/03/21 09:15 Eosinophils # (Manual) 0.0 K/mm3 (0.0-0.4) 12/03/21 09:15 Basophils # (Manual) 0.0 K/mm3 (0.0-0.1) 12/03/21 09:15 Metamyelocytes # 0.0 K/mm3 12/03/21 09:15 Myelocytes # 0.0 K/mm3 12/03/21 09:15 Promyelocytes # 0.0 K/mm3 12/03/21 09:15 Blast Cells # 0.0 K/mm3 12/03/21 09:15 WBC Morphology Not Reportable 12/03/21 09:15 Hypersegmented Neuts Not Reportable 12/03/21 09:15 Hyposegmented Neuts Not Reportable 12/03/21 09:15 Hypogranular Neuts Not Reportable 12/03/21 09:15 Smudge Cells Not Reportable 12/03/21 09:15 Toxic Granulation 1+ 12/03/21 09:15 Toxic Vacuolation Not Reportable 12/03/21 09:15 Dohle Bodies Not Reportable 12/03/21 09:15 Pelger-Huet Anomaly Not Reportable 12/03/21 09:15 Delvin Rods Not Reportable 12/03/21 09:15 Platelet Estimate Consistent w auto 12/03/21 09:15 Clumped Platelets Rare 12/03/21 09:15 Plt Clumps, EDTA Not Reportable 12/03/21 09:15 Large Platelets Not Reportable 12/03/21 09:15 Giant Platelets Not Reportable 12/03/21 09:15 Platelet Satelliting Not Reportable 12/03/21 09:15 Plt Morphology Comment Not Reportable 12/03/21 09:15 RBC Morphology Normal 12/03/21 09:15 Dimorphic RBCs Not Reportable 12/03/21 09:15 Polychromasia Not Reportable 12/03/21 09:15 Hypochromasia Not Reportable 12/03/21 09:15 Poikilocytosis Not Reportable 12/03/21 09:15 Anisocytosis Not Reportable 12/03/21 09:15 Microcytosis Not Reportable 12/03/21 09:15 Macrocytosis Not Reportable 12/03/21 09:15 Spherocytes Not Reportable 12/03/21 09:15 Pappenheimer Bodies Not Reportable 12/03/21 09:15 Sickle Cells Not Reportable 12/03/21 09:15 Target Cells Not Reportable 12/03/21 09:15 Tear Drop Cells Not Reportable 12/03/21 09:15 Ovalocytes Not Reportable 12/03/21 09:15 Helmet Cells Not Reportable 12/03/21 09:15 [place] Bodies Not Reportable 12/03/21 09:15 [place] Rings Not Reportable 12/03/21 09:15 [place] Cells Not Reportable 12/03/21 09:15 Bite Cells Not Reportable 12/03/21 09:15 Crenated Cell Not Reportable 12/03/21 09:15 Elliptocytes Not Reportable 12/03/21 09:15 Acanthocytes (Spur) Not Reportable 12/03/21 09:15 Rouleaux Not Reportable 12/03/21 09:15 Hemoglobin C Crystals Not Reportable 12/03/21 09:15 Schistocytes Not Reportable 12/03/21 09:15 Malaria parasites Not Reportable 12/03/21 09:15 Madan Bodies Not Reportable 12/03/21 09:15 Hem Pathologist Commnt No 12/03/21 09:15 D-Dimer 1577.07 ng/mlDDU (0-234) H 12/03/21 12:31 ABG pH 7.340 pH Units (7.350-7.450) L 12/03/21 08:55 ABG pCO2 47.1 mm Hg 12/03/21 08:55 ABG pO2 91.1 mm Hg (80.0-90.0) H 12/03/21 08:55 ABG HCO3 24.8 mmol/L (20.0-26.0) 12/03/21 08:55 ABG O2 Saturation 96.7 % (95.0-99.0) 12/03/21 08:55 ABG O2 Content 17.7 (0.0-44) 12/03/21 08:55 ABG Base Excess -1.3 mmol/L (-2.0-3.0) 12/03/21 08:55 ABG Hemoglobin 13.2 gm/dl (14.0-18.0) L 12/03/21 08:55 ABG Carboxyhemoglobin 1.2 % (0.0-5.0) 12/03/21 08:55 ABG Methemoglobin 0.5 % (0.0-1.5) 12/03/21 08:55 Oxyhemoglobin 95.1 % (95.0-99.0) 12/03/21 08:55 FiO2 40 % 12/03/21 08:55 Sodium 141 mmol/L (137-145) 12/06/21 04:33 Potassium 3.3 mmol/L (3.6-5.0) L 12/06/21 04:33 Chloride 103.6 mmol/L (98-107) 12/06/21 04:33 Carbon Dioxide 26 mmol/L (22-30) 12/06/21 04:33 Anion Gap 15 mmol/L 12/06/21 04:33 BUN 22 mg/dL (9-20) H 12/06/21 04:33 Creatinine 1.2 mg/dL (0.8-1.3) 12/06/21 04:33 Estimated GFR > 60 ml/min 12/06/21 04:33 BUN/Creatinine Ratio 18 % 12/06/21 04:33 Glucose 105 mg/dL (75-100) H 12/06/21 04:33 POC Glucose 147 mg/dL (70-105) H 12/03/21 20:59 Hemoglobin A1c 5.8 % (4-6) 12/03/21 11:25 Calcium 8.5 mg/dL (8.4-10.2) 12/06/21 04:33 Phosphorus 3.60 mg/dL (2.5-4.5) 12/06/21 04:33 Magnesium 2.30 mg/dL (1.7-2.3) 12/06/21 04:33 Total Bilirubin 0.20 mg/dL (0.1-1.2) 12/04/21 03:20 AST 19 units/L (5-40) 12/04/21 03:20 ALT 31 units/L (7-56) 12/04/21 03:20 Alkaline Phosphatase 51 units/L (35-129) 12/04/21 03:20 NT-Pro-B Natriuret Pep 936.6 pg/mL (0-900) H 12/03/21 11:25 Total Protein 7.9 g/dL (6.3-8.2) 12/04/21 03:20 Albumin 3.9 g/dL (3.9-5) 12/04/21 03:20 Albumin/Globulin Ratio 1.0 % 12/04/21 03:20 Koroma/IV: Voiding Method Urinal Active Medications - Current Medications Current Medications: Generic Name Dose Route Start Last Admin Trade Name Freq PRN Reason Stop Dose Admin Acetaminophen 650 mg 12/03/21 11:09 Acetaminophen 325 Mg Tab PO Q6H PRN Pain MILD(1-3)/Fever >100.5/DENSON Amlodipine Besylate 5 mg 12/04/21 10:00 12/05/21 10:45 Amlodipine 5 Mg Tab PO 5 mg QDAY FIORELLA Administration Aspirin 81 mg 12/04/21 10:00 12/05/21 10:46 Aspirin 81 Mg Tab Chew PO 81 mg DAILY FIORELLA Administration Atorvastatin Calcium 40 mg 12/03/21 22:00 12/05/21 21:43 Atorvastatin 40 Mg Tab PO 40 mg QHS FIORELLA Administration Carvedilol 3.125 mg 12/03/21 22:00 12/05/21 21:43 Carvedilol 3.125 Mg Tab PO 3.125 mg BID FIORELLA Administration Dextrose 50 ml 12/03/21 11:09 Dextrose 50% In Water (25gm) 50 Ml Syringe IV Q30MIN PRN Hypoglycemia Protocol Furosemide 40 mg 12/03/21 12:00 12/05/21 10:46 Furosemide 40 Mg/4 Ml Inj IV 40 mg QDAY FIORELLA Administration Heparin Sodium (Porcine) 5,000 unit 12/03/21 14:00 12/06/21 04:59 Heparin 5,000 Unit/1 Ml Vial SUB-Q 5,000 unit Q8HR FIORELLA Administration Milrinone Lactate/Dextrose 20 mg in 100 mls @ 12.218 mls/hr 12/05/21 16:00 12/06/21 04:59 Milrinone-D5w 20 Mg/100 Ml IV 12/08/21 15:59 0.375 mcg/kg/min DIRECT FIORELLA 12.218 mls/hr Administration Protocol 0.375 MCG/KG/MIN Isosorbide Dinitrate 20 mg 12/04/21 10:00 12/05/21 10:44 Isosorbide Dinitrate 20 Mg Tab PO 20 mg DAILY FIORELLA Administration Naloxone HCl 0.1 mg 12/03/21 11:09 Naloxone 0.4 Mg/1 Ml Inj IV Q2MIN PRN Res Rate </= 8 or 02 SAT < 92% Ondansetron HCl 4 mg 12/03/21 11:09 Ondansetron 4 Mg/2 Ml Inj IV Q8H PRN Nausea And Vomiting Oxycodone/Acetaminophen 1 tab 12/03/21 11:09 Oxycodone /Acetaminophen 5-325mg Tab PO Q6H PRN Pain, Moderate (4-6) Pantoprazole Sodium 40 mg 12/05/21 10:00 12/05/21 10:46 Pantoprazole 40 Mg Tab PO 40 mg DAILY FIORELLA Administration Sacubitril/Valsartan 1 each 12/04/21 10:00 12/05/21 10:46 Sacubitril/Valsartan 24-26 Mg Tab PO 1 each DAILY FIORELLA Administration Senna 8.6 mg 12/03/21 22:00 12/05/21 21:43 Sennosides 8.6 Mg Tab PO Not Given BID FIORELLA Sodium Chloride 10 ml 12/03/21 22:00 12/05/21 21:43 Sodium Chloride 0.9% 10 Ml Flush Syringe IV 10 ml BID FIORELLA Administration Sodium Chloride 10 ml 12/03/21 11:09 Sodium Chloride 0.9% 10 Ml Flush Syringe IV PRN PRN LINE FLUSH
[2021-12-05] MEDS: ISOSORBIDE DINITRATE 20 MG TAB PO SCH (10:44)
[2021-12-05] MEDS: AZITHROMYCIN 250 MG TAB PO SCH (10:45)
[2021-12-05] MEDS: amLODIPine 5 MG TAB PO SCH (10:45)
[2021-12-05] MEDS: carvediloL 3.125 MG TAB PO SCH ×2 (10:46→21:43)
[2021-12-05] MEDS: ASPIRIN 81 MG TAB CHEW PO SCH (10:46)
[2021-12-05] MEDS: SACUBITRIL/VALSARTAN 24-26 MG TAB PO SCH (10:46)
[2021-12-05] MEDS: PANTOPRAZOLE 40 MG TAB PO SCH (10:46)
[2021-12-05] MEDS: FUROSEMIDE 40 MG/4 ML INJ IV SCH (10:46)
[2021-12-05] MEDS: SENNOSIDES 8.6 MG TAB PO SCH ×2 (10:47→21:43)
--- NOTE | 2021-12-05 15:02 | Progress Note ---
Assessment and Plan - Patient Problems (1) Acute on chronic systolic heart failure Current Visit: Yes Status: Acute Plan to address problem: Patient still appears clinically decompensated, will recommend continued aggressive diuretic therapy, and a 72 infusion of milrinone. Subjective Date of service: 12/05/21 Principal diagnosis: Acute on chronic systolic heart failure Interval history: Patient is visiting from [place], admitted with acute on chronic systolic heart failure. He gives a history of nonischemic cardiomyopathy, states that a cardiac catheterization a year ago showed no significant coronary disease, following which he underwent implantation of an ICD. He is uncertain about his ejection fraction, but appears to be on guideline directed medical cocktail for chronic systolic heart failure. His echocardiogram here shows severe left ventricular systolic dysfunction with ejection fraction less than 20%. Objective Vital Signs Temp Pulse Pulse Resp BP Pulse Ox 12/05/21 14:00 59 L 15 128/77 92 12/05/21 13:00 57 L 15 125/86 97 12/05/21 12:01 62 17 119/76 89 12/05/21 12:00 98.0 F 98 12/05/21 11:00 72 13 149/101 94 12/05/21 10:46 60 150/95 12/05/21 10:45 60 150/95 12/05/21 10:44 63 150/95 12/05/21 10:01 63 14 143/98 93 12/05/21 09:00 60 19 143/98 93 12/05/21 08:00 98.3 F 58 L 13 149/96 98 12/05/21 07:01 59 L 18 149/102 93 12/05/21 06:00 53 L 10 L 139/92 90 12/05/21 05:00 59 L 12 131/99 90 12/05/21 04:01 54 L 17 133/97 95 12/05/21 04:00 98 F 95 12/05/21 03:00 53 L 13 122/87 98 12/05/21 02:00 54 L 15 122/87 94 12/05/21 01:28 70 12/05/21 01:01 55 L 17 134/79 91 12/05/21 00:01 60 18 143/93 94 12/05/21 00:00 98.3 F 95 12/04/21 23:01 56 L 9 L 133/95 90 12/04/21 22:01 82 19 116/73 89 07/31/22 21:19 65 19 156/113 95 12/04/21 21:01 76 25 H 156/113 94 12/04/21 20:47 95 12/04/21 20:00 60 16 150/107 92 12/04/21 19:48 98 F 95 12/04/21 19:01 61 18 141/92 93 12/04/21 18:01 59 L 23 134/82 92 12/04/21 17:01 61 19 130/78 94 12/04/21 16:00 97.7 F 61 63 22 129/88 95 - Physical Examination General: No Apparent Distress HEENT: Positive: PERRL Neck: Positive: neck supple Cardiac: Positive: Reg Rate and Rhythm Lungs: Positive: Decreased Breath Sounds Neuro: Positive: Grossly Intact, No Lateralizing Findings Abdomen: Positive: Soft, Active Bowel Sounds Skin: Positive: Clear Extremities: Absent: edema - Labs and Meds CBC 12/05/21 Range/Units 04:56 WBC 17.2 H (4.5-11.0) K/mm3 RBC 4.22 (3.65-5.03) M/mm3 Hgb 13.1 (11.8-15.2) gm/dl Hct 40.0 (35.5-45.6) % Plt Count 265 (140-440) K/mm3 Comprehensive Metabolic Panel 12/05/21 Range/Units 04:56 Sodium 140 (137-145) mmol/L Potassium 4.0 (3.6-5.0) mmol/L Chloride 103.2 (98-107) mmol/L Carbon Dioxide 26 (22-30) mmol/L BUN 21 H (9-20) mg/dL Creatinine 1.2 (0.8-1.3) mg/dL Glucose 112 H (75-100) mg/dL Calcium 9.2 (8.4-10.2) mg/dL
[2021-12-05] MEDS: MILRINONE-D5W 20 MG/100 ML 20 MG/100 ML BAG IV SCH (15:53)
[2021-12-06] MEDS: MILRINONE-D5W 20 MG/100 ML 20 MG/100 ML BAG IV SCH ×4 (00:48→22:07)
[2021-12-06] MEDS: HEPARIN 5,000 UNIT/1 ML VIAL SUB-Q SCH ×3 (04:59→22:07)
[2021-12-06 06:43] LABS: Hematocrit 39.4 % (35.5-45.6); Mean Corpuscular HGB Conc 33 % (32-34); Mean Corpuscular Volume 94 fl (84-94); Platelet Count 264 K/mm3 (140-440); Red Cell Distribution Width 13.6 % (13.2-15.2)
[2021-12-06 06:58] LABS: BUN/Creatinine Ratio 18; Blood Urea Nitrogen 22 mg/dL (9-20); Calcium 8.5 mg/dL (8.4-10.2); Hemolysis Index 25
[2021-12-06] MEDS ORDERED: POTASSIUM CHLORIDE ER 20 MEQ TAB PO SCH (09:00)
[2021-12-06] MEDS: PANTOPRAZOLE 40 MG TAB PO SCH (09:47)
[2021-12-06] MEDS: SENNOSIDES 8.6 MG TAB PO SCH ×2 (09:47→22:07)
[2021-12-06] MEDS: carvediloL 3.125 MG TAB PO SCH ×2 (09:48→22:06)
[2021-12-06] MEDS: amLODIPine 5 MG TAB PO SCH (09:48)
[2021-12-06] MEDS: ISOSORBIDE DINITRATE 20 MG TAB PO SCH (09:48)
[2021-12-06] MEDS: FUROSEMIDE 40 MG/4 ML INJ IV SCH ×2 (09:48→17:39)
[2021-12-06] MEDS: ASPIRIN 81 MG TAB CHEW PO SCH (09:48)
[2021-12-06] MEDS: SACUBITRIL/VALSARTAN 24-26 MG TAB PO SCH (09:49)
--- NOTE | 2021-12-06 10:20 | Progress Note ---
<STACEY BILLS - Last Filed: 12/06/21 18:02> Assessment and Plan Assessment and plan: This is a 61-year-old male with CVA x4, HTN, CHF, and dilated cardiomyopathy s/p AICD placement admitted with acute CHF exacerbation Hospital course to date: 12/04: Patient has been transitioned off of BiPAP and is on nasal cannula, CTA chest negative for PE. Cardiology plans to conduct a stress test on Sunday. Echocardiogram pending. Nebulizers and steroids discontinued. Patient will be transferred to the floor. 12/05: PRO overnight. VSS. Echo reviewed, EF is 15 to 20%, continue IV lasix. Plan for possible stress test today per cardiology. Patient remains afebrile, on RA, and hemodynamicaly stable. Leukocytosis this am, most likely related to IV steroids. Will hold IV Abx for now, panculture if febrile. 12/06: Stress test cancelled yesterday. Milrinone gtt was initiated X72hrs per Cardio and IV lasix increased to BID. Patient remains hemodynamicaly stable, leukocytosis resolved and no fevers reported. Monitor and replace electrolytes as needed. Assessment and Plan #Acute on Chronic Systolic and Diastolic Heart Failure, #Dilated Cardiomyopathy s/p AICD #H/o HTN, HLD - Presented with SOBX1 week, tripoding, and unable to complete sentences requiring Bipap - 2D echo reviewed, EF 15 to 20% - Cardiology consulted, appreciate recommendations - Stress test cancelled by Cardio. Milrinone gtt was initiated X72hrs per Cardio - IV lasix increased to BID - Remains SB to SR on the monitor, VSS - Continue Amlodipine, aspirin, Lipitor, Coreg, Isordil, & Entresto - Continue blood pressure monitor per protocol - Maintain MAP above 65 #Acute Hypoxic Respiratory Failure #Fluid Overload - Presented with SOB, tripoding - CXR showed moderate cardiomegaly with volume overload - CTA chest also reviewed, no evidence of PE. Significant improvement in lungs aeration, residual bibasilar atelectasis reported. See report for detail - S/p continuous Bipap and IV Steroids - On IV lasix. Patient is stable on RA - PRN O2 supplementation as needed - Bipap at night - Pulmonary hygiene and PRN nebx treatment - Continue SPO2 monitoring for SPO2 goal above 92% - Follow up outpatient for ARIADNA eval/Sleep study - Pulmonary signed off #Hypokalemia - most likely due to diuretic - on IV Lasix BID, K repleted - Monitor and replace electrolytes as needed #Leukocytosis-resolved - Anoop in WBCs, most likely secondary to IV steroids- D/aries - Leukocytosis resolved - Patient remains afebrile. With significant improvement in respiratory status post IV lasix - CXR consistent with fluid overload - CTA chest also reviewed confirmed Significant improvement in lungs aeration, residual bibasilar atelectasis reported - Will hold empiric IV abx for now - Panculture if patient is febrile - Continue to trend CBC #Morbid Obesity - BMI 37.5 - Encouraged lifestyle and dietary modifications, increase physical activity at discharge #Elevated D-Dimer - CTA chest showed no pulmonary embolism, moderate cardiomegaly - BLE doppler negative DVT - SCDs to BLE while in bed - Heparin SubQ #GI/DVT Prophylaxis - PPI- Protonix - Heparin SubQ - SCDs to BLE while in bed #Advance Care Planning - Disease education data, care plan, diagnoses, and prognosis were discussed with patient at the bedside. Patient is a FULL code. Patient acknowledged understanding and agreed with current care plan. The high probability of a clinically significant, sudden or life threatening deterioration of the [cardio] system(s) required my full and direct attention, intervention and personal management. The aggregate critical care time was [60] minutes. This time is in addition to time spent performing reported procedures but includes the following: [x] Data Review and interpretation [x] Patient assessment and monitoring of vital signs [x] Documentation [x] Medication orders and management Disposition Plan: IMCU Total Time Spent with Patient (Minutes): 60 History Interval history: Patient seen and examined at the bedside. Remains stable on RA, denied any pain nor any discomfort at this time. Stress test cancelled per Cardio, patient now on Milrinone gtt, VSS. PRO overnight Hospitalist Physical - Constitutional Vitals: Temp Pulse Resp BP Pulse Ox 98.4 F 71 17 119/71 92 12/06/21 08:00 12/06/21 09:48 12/06/21 09:00 12/06/21 09:48 12/06/21 09:00 General appearance: Present: no acute distress, well-nourished, obese - EENT Eyes: Present: PERRL ENT: hearing intact - Neck Neck: Present: normal ROM - Respiratory Respiratory effort: normal Respiratory: bilateral: diminished - Cardiovascular Rhythm: regular Heart Sounds: Present: S1 & S2 - Extremities Extremities: no ischemia, pulses intact, pulses symmetrical Extremity abnormal: edema - Peripheral Assessment Generalized Edema Type: Non-pitting Edema Degree: 1+ Capillary Refill: < 3 seconds Skin Temperature: Warm Peripheral Pulses: within normal limits - Abdominal General gastrointestinal: soft, non-distended, normal bowel sounds - Integumentary Integumentary: Present: warm, dry - Psychiatric Psychiatric: appropriate mood/affect, cooperative - Neurologic Neurologic: CNII-XII intact, moves all extremities - Allied Health Allied health notes reviewed: nursing, case management Results - Labs CBC & Chem 7: 12/06/21 04:33 12/06/21 04:33 Labs: Laboratory Last Values WBC 9.1 K/mm3 (4.5-11.0) 12/06/21 04:33 RBC 4.20 M/mm3 (3.65-5.03) 12/06/21 04:33 Hgb 13.0 gm/dl (11.8-15.2) 12/06/21 04:33 Hct 39.4 % (35.5-45.6) 12/06/21 04:33 MCV 94 fl (84-94) 12/06/21 04:33 MCH 31 pg (28-32) 12/06/21 04:33 MCHC 33 % (32-34) 12/06/21 04:33 RDW 13.6 % (13.2-15.2) 12/06/21 04:33 Plt Count 264 K/mm3 (140-440) 12/06/21 04:33 Lymph % (Auto) 11.0 % (13.4-35.0) L 12/04/21 03:20 [place] % (Auto) 1.3 % (0.0-7.3) 12/04/21 03:20 Eos % (Auto) 0.0 % (0.0-4.3) 12/04/21 03:20 Baso % (Auto) 0.9 % (0.0-1.8) 12/04/21 03:20 Lymph # (Auto) 1.5 K/mm3 (1.2-5.4) 12/04/21 03:20 [place] # (Auto) 0.2 K/mm3 (0.0-0.8) 12/04/21 03:20 Eos # (Auto) 0.0 K/mm3 (0.0-0.4) 12/04/21 03:20 Baso # (Auto) 0.1 K/mm3 (0.0-0.1) 12/04/21 03:20 Add Manual Diff Complete 12/03/21 09:15 Total Counted 100 12/03/21 09:15 Seg Neutrophils % 86.8 % (40.0-70.0) H 12/04/21 03:20 Seg Neuts % (Manual) 93.0 % (40.0-70.0) H 12/03/21 09:15 Band Neutrophils % 0 % 12/03/21 09:15 Lymphocytes % (Manual) 7.0 % (13.4-35.0) L 12/03/21 09:15 Reactive Lymphs % (Man) 0 % 12/03/21 09:15 Monocytes % (Manual) 0 % (0.0-7.3) 12/03/21 09:15 Eosinophils % (Manual) 0 % (0.0-4.3) 12/03/21 09:15 Basophils % (Manual) 0 % (0.0-1.8) 12/03/21 09:15 Metamyelocytes % 0 % 12/03/21 09:15 Myelocytes % 0 % 12/03/21 09:15 Promyelocytes % 0 % 12/03/21 09:15 Blast Cells % 0 % 12/03/21 09:15 Nucleated RBC % Not Reportable 12/03/21 09:15 Seg Neutrophils # 11.5 K/mm3 (1.8-7.7) H 12/04/21 03:20 Seg Neutrophils # Man 10.3 K/mm3 (1.8-7.7) H 12/03/21 09:15 Band Neutrophils # 0.0 K/mm3 12/03/21 09:15 Lymphocytes # (Manual) 0.8 K/mm3 (1.2-5.4) L 12/03/21 09:15 Abs React Lymphs (Man) 0.0 K/mm3 12/03/21 09:15 Monocytes # (Manual) 0.0 K/mm3 (0.0-0.8) 12/03/21 09:15 Eosinophils # (Manual) 0.0 K/mm3 (0.0-0.4) 12/03/21 09:15 Basophils # (Manual) 0.0 K/mm3 (0.0-0.1) 12/03/21 09:15 Metamyelocytes # 0.0 K/mm3 12/03/21 09:15 Myelocytes # 0.0 K/mm3 12/03/21 09:15 Promyelocytes # 0.0 K/mm3 12/03/21 09:15 Blast Cells # 0.0 K/mm3 12/03/21 09:15 WBC Morphology Not Reportable 12/03/21 09:15 Hypersegmented Neuts Not Reportable 12/03/21 09:15 Hyposegmented Neuts Not Reportable 12/03/21 09:15 Hypogranular Neuts Not Reportable 12/03/21 09:15 Smudge Cells Not Reportable 12/03/21 09:15 Toxic Granulation 1+ 12/03/21 09:15 Toxic Vacuolation Not Reportable 12/03/21 09:15 Dohle Bodies Not Reportable 12/03/21 09:15 Pelger-Huet Anomaly Not Reportable 12/03/21 09:15 Delvin Rods Not Reportable 12/03/21 09:15 Platelet Estimate Consistent w auto 12/03/21 09:15 Clumped Platelets Rare 12/03/21 09:15 Plt Clumps, EDTA Not Reportable 12/03/21 09:15 Large Platelets Not Reportable 12/03/21 09:15 Giant Platelets Not Reportable 12/03/21 09:15 Platelet Satelliting Not Reportable 12/03/21 09:15 Plt Morphology Comment Not Reportable 12/03/21 09:15 RBC Morphology Normal 12/03/21 09:15 Dimorphic RBCs Not Reportable 12/03/21 09:15 Polychromasia Not Reportable 12/03/21 09:15 Hypochromasia Not Reportable 12/03/21 09:15 Poikilocytosis Not Reportable 12/03/21 09:15 Anisocytosis Not Reportable 12/03/21 09:15 Microcytosis Not Reportable 12/03/21 09:15 Macrocytosis Not Reportable 12/03/21 09:15 Spherocytes Not Reportable 12/03/21 09:15 Pappenheimer Bodies Not Reportable 12/03/21 09:15 Sickle Cells Not Reportable 12/03/21 09:15 Target Cells Not Reportable 12/03/21 09:15 Tear Drop Cells Not Reportable 12/03/21 09:15 Ovalocytes Not Reportable 12/03/21 09:15 Helmet Cells Not Reportable 12/03/21 09:15 Ring-Stephens Bodies Not Reportable 12/03/21 09:15 [place] Rings Not Reportable 12/03/21 09:15 [place] Cells Not Reportable 12/03/21 09:15 Bite Cells Not Reportable 12/03/21 09:15 Crenated Cell Not Reportable 12/03/21 09:15 Elliptocytes Not Reportable 12/03/21 09:15 Acanthocytes (Spur) Not Reportable 12/03/21 09:15 Rouleaux Not Reportable 12/03/21 09:15 Hemoglobin C Crystals Not Reportable 12/03/21 09:15 Schistocytes Not Reportable 12/03/21 09:15 Malaria parasites Not Reportable 12/03/21 09:15 Madan Bodies Not Reportable 12/03/21 09:15 Hem Pathologist Commnt No 12/03/21 09:15 D-Dimer 1577.07 ng/mlDDU (0-234) H 12/03/21 12:31 ABG pH 7.340 pH Units (7.350-7.450) L 12/03/21 08:55 ABG pCO2 47.1 mm Hg 12/03/21 08:55 ABG pO2 91.1 mm Hg (80.0-90.0) H 12/03/21 08:55 ABG HCO3 24.8 mmol/L (20.0-26.0) 12/03/21 08:55 ABG O2 Saturation 96.7 % (95.0-99.0) 12/03/21 08:55 ABG O2 Content 17.7 (0.0-44) 12/03/21 08:55 ABG Base Excess -1.3 mmol/L (-2.0-3.0) 12/03/21 08:55 ABG Hemoglobin 13.2 gm/dl (14.0-18.0) L 12/03/21 08:55 ABG Carboxyhemoglobin 1.2 % (0.0-5.0) 12/03/21 08:55 ABG Methemoglobin 0.5 % (0.0-1.5) 12/03/21 08:55 Oxyhemoglobin 95.1 % (95.0-99.0) 12/03/21 08:55 FiO2 40 % 12/03/21 08:55 Sodium 141 mmol/L (137-145) 12/06/21 04:33 Potassium 3.3 mmol/L (3.6-5.0) L 12/06/21 04:33 Chloride 103.6 mmol/L (98-107) 12/06/21 04:33 Carbon Dioxide 26 mmol/L (22-30) 12/06/21 04:33 Anion Gap 15 mmol/L 12/06/21 04:33 BUN 22 mg/dL (9-20) H 12/06/21 04:33 Creatinine 1.2 mg/dL (0.8-1.3) 12/06/21 04:33 Estimated GFR > 60 ml/min 12/06/21 04:33 BUN/Creatinine Ratio 18 % 12/06/21 04:33 Glucose 105 mg/dL (75-100) H 12/06/21 04:33 POC Glucose 147 mg/dL (70-105) H 12/03/21 20:59 Hemoglobin A1c 5.8 % (4-6) 12/03/21 11:25 Calcium 8.5 mg/dL (8.4-10.2) 12/06/21 04:33 Phosphorus 3.60 mg/dL (2.5-4.5) 12/06/21 04:33 Magnesium 2.30 mg/dL (1.7-2.3) 12/06/21 04:33 Total Bilirubin 0.20 mg/dL (0.1-1.2) 12/04/21 03:20 AST 19 units/L (5-40) 12/04/21 03:20 ALT 31 units/L (7-56) 12/04/21 03:20 Alkaline Phosphatase 51 units/L (35-129) 12/04/21 03:20 NT-Pro-B Natriuret Pep 936.6 pg/mL (0-900) H 12/03/21 11:25 Total Protein 7.9 g/dL (6.3-8.2) 12/04/21 03:20 Albumin 3.9 g/dL (3.9-5) 12/04/21 03:20 Albumin/Globulin Ratio 1.0 % 12/04/21 03:20 Procalcitonin 0.10 ng/mL (<0.15) 12/06/21 04:33 Koroma/IV: Voiding Method Urinal Active Medications - Current Medications Current Medications: Generic Name Dose Route Start Last Admin Trade Name Freq PRN Reason Stop Dose Admin Acetaminophen 650 mg 12/03/21 11:09 Acetaminophen 325 Mg Tab PO Q6H PRN Pain MILD(1-3)/Fever >100.5/DENSON Amlodipine Besylate 5 mg 12/04/21 10:00 12/06/21 09:48 Amlodipine 5 Mg Tab PO 5 mg QDAY FIORELLA Administration Aspirin 81 mg 12/04/21 10:00 12/06/21 09:48 Aspirin 81 Mg Tab Chew PO 81 mg DAILY FIORELLA Administration Atorvastatin Calcium 40 mg 12/03/21 22:00 12/05/21 21:43 Atorvastatin 40 Mg Tab PO 40 mg QHS FIORELLA Administration Carvedilol 3.125 mg 12/03/21 22:00 12/06/21 09:48 Carvedilol 3.125 Mg Tab PO 3.125 mg BID FIORELLA Administration Dextrose 50 ml 12/03/21 11:09 Dextrose 50% In Water (25gm) 50 Ml Syringe IV Q30MIN PRN Hypoglycemia Protocol Furosemide 40 mg 12/03/21 12:00 12/06/21 09:48 Furosemide 40 Mg/4 Ml Inj IV 40 mg QDAY FIORELLA Administration Heparin Sodium (Porcine) 5,000 unit 12/03/21 14:00 12/06/21 04:59 Heparin 5,000 Unit/1 Ml Vial SUB-Q 5,000 unit Q8HR FIORELLA Administration Milrinone Lactate/Dextrose 20 mg in 100 mls @ 12.218 mls/hr 12/05/21 16:00 12/06/21 04:59 Milrinone-D5w 20 Mg/100 Ml IV 12/08/21 15:59 0.375 mcg/kg/min DIRECT FIORELLA 12.218 mls/hr Administration Protocol 0.375 MCG/KG/MIN Isosorbide Dinitrate 20 mg 12/04/21 10:00 12/06/21 09:48 Isosorbide Dinitrate 20 Mg Tab PO 20 mg DAILY FIORELLA Administration Naloxone HCl 0.1 mg 12/03/21 11:09 Naloxone 0.4 Mg/1 Ml Inj IV Q2MIN PRN Res Rate </= 8 or 02 SAT < 92% Ondansetron HCl 4 mg 12/03/21 11:09 Ondansetron 4 Mg/2 Ml Inj IV Q8H PRN Nausea And Vomiting Oxycodone/Acetaminophen 1 tab 12/03/21 11:09 Oxycodone /Acetaminophen 5-325mg Tab PO Q6H PRN Pain, Moderate (4-6) Pantoprazole Sodium 40 mg 12/05/21 10:00 12/06/21 09:47 Pantoprazole 40 Mg Tab PO 40 mg DAILY FIORELLA Administration Potassium Chloride 40 meq 12/06/21 09:00 12/06/21 09:48 Potassium Chloride Er 20 Meq Tab PO 12/06/21 13:00 40 meq ONCE@0900 FIORELLA Administration Sacubitril/Valsartan 1 each 12/04/21 10:00 12/06/21 09:49 Sacubitril/Valsartan 24-26 Mg Tab PO 1 each DAILY FIORELLA Administration Senna 8.6 mg 12/03/21 22:00 12/06/21 09:47 Sennosides 8.6 Mg Tab PO 8.6 mg BID FIORELLA Administration Sodium Chloride 10 ml 12/03/21 22:00 12/06/21 09:49 Sodium Chloride 0.9% 10 Ml Flush Syringe IV 10 ml BID FIORELLA Administration Sodium Chloride 10 ml 12/03/21 11:09 Sodium Chloride 0.9% 10 Ml Flush Syringe IV PRN PRN LINE FLUSH <CHADWICK THOMPSON - Last Filed: 12/07/21 07:14> Assessment and Plan Assessment and plan: I saw and evaluated the patient. I agree with the findings and the plan of care as documented in the Nurse Practitioner's~note, with the following corrections and additions. Hospitalist Physical - Constitutional Vitals: Temp Pulse Resp BP Pulse Ox 98.4 F 66 17 120/68 91 12/07/21 04:00 12/07/21 06:00 12/07/21 06:00 12/07/21 06:00 12/07/21 06:00 Results - Labs CBC & Chem 7: 12/06/21 04:33 12/07/21 03:53 Labs: Laboratory Last Values WBC 9.1 K/mm3 (4.5-11.0) 12/06/21 04:33 RBC 4.20 M/mm3 (3.65-5.03) 12/06/21 04:33 Hgb 13.0 gm/dl (11.8-15.2) 12/06/21 04:33 Hct 39.4 % (35.5-45.6) 12/06/21 04:33 MCV 94 fl (84-94) 12/06/21 04:33 MCH 31 pg (28-32) 12/06/21 04:33 MCHC 33 % (32-34) 12/06/21 04:33 RDW 13.6 % (13.2-15.2) 12/06/21 04:33 Plt Count 264 K/mm3 (140-440) 12/06/21 04:33 Lymph % (Auto) 11.0 % (13.4-35.0) L 12/04/21 03:20 [place] % (Auto) 1.3 % (0.0-7.3) 12/04/21 03:20 Eos % (Auto) 0.0 % (0.0-4.3) 12/04/21 03:20 Baso % (Auto) 0.9 % (0.0-1.8) 12/04/21 03:20 Lymph # (Auto) 1.5 K/mm3 (1.2-5.4) 12/04/21 03:20 [place] # (Auto) 0.2 K/mm3 (0.0-0.8) 12/04/21 03:20 Eos # (Auto) 0.0 K/mm3 (0.0-0.4) 12/04/21 03:20 Baso # (Auto) 0.1 K/mm3 (0.0-0.1) 12/04/21 03:20 Add Manual Diff Complete 12/03/21 09:15 Total Counted 100 12/03/21 09:15 Seg Neutrophils % 86.8 % (40.0-70.0) H 12/04/21 03:20 Seg Neuts % (Manual) 93.0 % (40.0-70.0) H 12/03/21 09:15 Band Neutrophils % 0 % 12/03/21 09:15 Lymphocytes % (Manual) 7.0 % (13.4-35.0) L 12/03/21 09:15 Reactive Lymphs % (Man) 0 % 12/03/21 09:15 Monocytes % (Manual) 0 % (0.0-7.3) 12/03/21 09:15 Eosinophils % (Manual) 0 % (0.0-4.3) 12/03/21 09:15 Basophils % (Manual) 0 % (0.0-1.8) 12/03/21 09:15 Metamyelocytes % 0 % 12/03/21 09:15 Myelocytes % 0 % 12/03/21 09:15 Promyelocytes % 0 % 12/03/21 09:15 Blast Cells % 0 % 12/03/21 09:15 Nucleated RBC % Not Reportable 12/03/21 09:15 Seg Neutrophils # 11.5 K/mm3 (1.8-7.7) H 12/04/21 03:20 Seg Neutrophils # Man 10.3 K/mm3 (1.8-7.7) H 12/03/21 09:15 Band Neutrophils # 0.0 K/mm3 12/03/21 09:15 Lymphocytes # (Manual) 0.8 K/mm3 (1.2-5.4) L 12/03/21 09:15 Abs React Lymphs (Man) 0.0 K/mm3 12/03/21 09:15 Monocytes # (Manual) 0.0 K/mm3 (0.0-0.8) 12/03/21 09:15 Eosinophils # (Manual) 0.0 K/mm3 (0.0-0.4) 12/03/21 09:15 Basophils # (Manual) 0.0 K/mm3 (0.0-0.1) 12/03/21 09:15 Metamyelocytes # 0.0 K/mm3 12/03/21 09:15 Myelocytes # 0.0 K/mm3 12/03/21 09:15 Promyelocytes # 0.0 K/mm3 12/03/21 09:15 Blast Cells # 0.0 K/mm3 12/03/21 09:15 WBC Morphology Not Reportable 12/03/21 09:15 Hypersegmented Neuts Not Reportable 12/03/21 09:15 Hyposegmented Neuts Not Reportable 12/03/21 09:15 Hypogranular Neuts Not Reportable 12/03/21 09:15 Smudge Cells Not Reportable 12/03/21 09:15 Toxic Granulation 1+ 12/03/21 09:15 Toxic Vacuolation Not Reportable 12/03/21 09:15 Dohle Bodies Not Reportable 12/03/21 09:15 Pelger-Huet Anomaly Not Reportable 12/03/21 09:15 Delvin Rods Not Reportable 12/03/21 09:15 Platelet Estimate Consistent w auto 12/03/21 09:15 Clumped Platelets Rare 12/03/21 09:15 Plt Clumps, EDTA Not Reportable 12/03/21 09:15 Large Platelets Not Reportable 12/03/21 09:15 Giant Platelets Not Reportable 12/03/21 09:15 Platelet Satelliting Not Reportable 12/03/21 09:15 Plt Morphology Comment Not Reportable 12/03/21 09:15 RBC Morphology Normal 12/03/21 09:15 Dimorphic RBCs Not Reportable 12/03/21 09:15 Polychromasia Not Reportable 12/03/21 09:15 Hypochromasia Not Reportable 12/03/21 09:15 Poikilocytosis Not Reportable 12/03/21 09:15 Anisocytosis Not Reportable 12/03/21 09:15 Microcytosis Not Reportable 12/03/21 09:15 Macrocytosis Not Reportable 12/03/21 09:15 Spherocytes Not Reportable 12/03/21 09:15 Pappenheimer Bodies Not Reportable 12/03/21 09:15 Sickle Cells Not Reportable 12/03/21 09:15 Target Cells Not Reportable 12/03/21 09:15 Tear Drop Cells Not Reportable 12/03/21 09:15 Ovalocytes Not Reportable 12/03/21 09:15 Helmet Cells Not Reportable 12/03/21 09:15 Ring-Stephens Bodies Not Reportable 12/03/21 09:15 [place] Rings Not Reportable 12/03/21 09:15 [place] Cells Not Reportable 12/03/21 09:15 Bite Cells Not Reportable 12/03/21 09:15 Crenated Cell Not Reportable 12/03/21 09:15 Elliptocytes Not Reportable 12/03/21 09:15 Acanthocytes (Spur) Not Reportable 12/03/21 09:15 Rouleaux Not Reportable 12/03/21 09:15 Hemoglobin C Crystals Not Reportable 12/03/21 09:15 Schistocytes Not Reportable 12/03/21 09:15 Malaria parasites Not Reportable 12/03/21 09:15 Madan Bodies Not Reportable 12/03/21 09:15 Hem Pathologist Commnt No 12/03/21 09:15 D-Dimer 1577.07 ng/mlDDU (0-234) H 12/03/21 12:31 ABG pH 7.340 pH Units (7.350-7.450) L 12/03/21 08:55 ABG pCO2 47.1 mm Hg 12/03/21 08:55 ABG pO2 91.1 mm Hg (80.0-90.0) H 12/03/21 08:55 ABG HCO3 24.8 mmol/L (20.0-26.0) 12/03/21 08:55 ABG O2 Saturation 96.7 % (95.0-99.0) 12/03/21 08:55 ABG O2 Content 17.7 (0.0-44) 12/03/21 08:55 ABG Base Excess -1.3 mmol/L (-2.0-3.0) 12/03/21 08:55 ABG Hemoglobin 13.2 gm/dl (14.0-18.0) L 12/03/21 08:55 ABG Carboxyhemoglobin 1.2 % (0.0-5.0) 12/03/21 08:55 ABG Methemoglobin 0.5 % (0.0-1.5) 12/03/21 08:55 Oxyhemoglobin 95.1 % (95.0-99.0) 12/03/21 08:55 FiO2 40 % 12/03/21 08:55 Sodium 141 mmol/L (137-145) 12/07/21 03:53 Potassium 3.3 mmol/L (3.6-5.0) L 12/07/21 03:53 Chloride 102.1 mmol/L (98-107) 12/07/21 03:53 Carbon Dioxide 26 mmol/L (22-30) 12/07/21 03:53 Anion Gap 16 mmol/L 12/07/21 03:53 BUN 18 mg/dL (9-20) 12/07/21 03:53 Creatinine 1.2 mg/dL (0.8-1.3) 12/07/21 03:53 Estimated GFR > 60 ml/min 12/07/21 03:53 BUN/Creatinine Ratio 15 % 12/07/21 03:53 Glucose 105 mg/dL (75-100) H 12/07/21 03:53 POC Glucose 147 mg/dL (70-105) H 12/03/21 20:59 Hemoglobin A1c 5.8 % (4-6) 12/03/21 11:25 Calcium 8.6 mg/dL (8.4-10.2) 12/07/21 03:53 Phosphorus 3.80 mg/dL (2.5-4.5) 12/07/21 03:53 Magnesium 2.10 mg/dL (1.7-2.3) 12/07/21 03:53 Total Bilirubin 0.20 mg/dL (0.1-1.2) 12/04/21 03:20 AST 19 units/L (5-40) 12/04/21 03:20 ALT 31 units/L (7-56) 12/04/21 03:20 Alkaline Phosphatase 51 units/L (35-129) 12/04/21 03:20 NT-Pro-B Natriuret Pep 936.6 pg/mL (0-900) H 12/03/21 11:25 Total Protein 7.9 g/dL (6.3-8.2) 12/04/21 03:20 Albumin 3.9 g/dL (3.9-5) 12/04/21 03:20 Albumin/Globulin Ratio 1.0 % 12/04/21 03:20 Procalcitonin 0.10 ng/mL (<0.15) 12/06/21 04:33 Koroma/IV: Voiding Method Urinal Active Medications - Current Medications Current Medications: Generic Name Dose Route Start Last Admin Trade Name Freq PRN Reason Stop Dose Admin Acetaminophen 650 mg 12/03/21 11:09 Acetaminophen 325 Mg Tab PO Q6H PRN Pain MILD(1-3)/Fever >100.5/DENSON Amlodipine Besylate 5 mg 12/04/21 10:00 08/02/22 09:48 Amlodipine 5 Mg Tab PO 5 mg QDAY FIORELLA Administration Aspirin 81 mg 12/04/21 10:00 12/06/21 09:48 Aspirin 81 Mg Tab Chew PO 81 mg DAILY FIORELLA Administration Atorvastatin Calcium 40 mg 12/03/21 22:00 12/06/21 22:07 Atorvastatin 40 Mg Tab PO 40 mg QHS FIORELLA Administration Carvedilol 3.125 mg 12/03/21 22:00 12/06/21 22:06 Carvedilol 3.125 Mg Tab PO 3.125 mg BID FIORELLA Administration Dextrose 50 ml 12/03/21 11:09 Dextrose 50% In Water (25gm) 50 Ml Syringe IV Q30MIN PRN Hypoglycemia Protocol Furosemide 40 mg 12/06/21 18:00 12/07/21 06:07 Furosemide 40 Mg/4 Ml Inj IV 40 mg 0600,1800 FIORELLA Administration Heparin Sodium (Porcine) 5,000 unit 12/03/21 14:00 12/07/21 05:02 Heparin 5,000 Unit/1 Ml Vial SUB-Q 5,000 unit Q8HR FIORELLA Administration Milrinone Lactate/Dextrose 20 mg in 100 mls @ 12.218 mls/hr 12/05/21 16:00 12/07/21 06:07 Milrinone-D5w 20 Mg/100 Ml IV 12/08/21 15:59 0.375 mcg/kg/min DIRECT FIORELLA 12.218 mls/hr Administration Protocol 0.375 MCG/KG/MIN Isosorbide Dinitrate 20 mg 12/04/21 10:00 12/06/21 09:48 Isosorbide Dinitrate 20 Mg Tab PO 20 mg DAILY FIORELLA Administration Naloxone HCl 0.1 mg 12/03/21 11:09 Naloxone 0.4 Mg/1 Ml Inj IV Q2MIN PRN Res Rate </= 8 or 02 SAT < 92% Ondansetron HCl 4 mg 12/03/21 11:09 Ondansetron 4 Mg/2 Ml Inj IV Q8H PRN Nausea And Vomiting Oxycodone/Acetaminophen 1 tab 12/03/21 11:09 Oxycodone /Acetaminophen 5-325mg Tab PO Q6H PRN Pain, Moderate (4-6) Pantoprazole Sodium 40 mg 12/05/21 10:00 12/06/21 09:47 Pantoprazole 40 Mg Tab PO 40 mg DAILY FIORELLA Administration Sacubitril/Valsartan 1 each 12/04/21 10:00 12/06/21 09:49 Sacubitril/Valsartan 24-26 Mg Tab PO 1 each DAILY FIORELLA Administration Senna 8.6 mg 12/03/21 22:00 12/06/21 22:07 Sennosides 8.6 Mg Tab PO Not Given BID FIORELLA Sodium Chloride 10 ml 12/03/21 22:00 12/06/21 22:07 Sodium Chloride 0.9% 10 Ml Flush Syringe IV 10 ml BID FIORELLA Administration Sodium Chloride 10 ml 12/03/21 11:09 Sodium Chloride 0.9% 10 Ml Flush Syringe IV PRN PRN LINE FLUSH
--- NOTE | 2021-12-06 10:51 | Progress Note ---
Assessment and Plan 61 y/o male with acute respiratory failure. 12/06/21: Will sign off pulm contreras. Saw today as patient was still on list and wanted to make sure condition had not changed. 12/05/21: Pulm status is improved and stable. Encouraged patient to have full work up by pulm back in his home. Will sign off. Call if questions. 12/04/21: Continue diuresis. Wean Fio2 to off. Transfer to floor, telemetry. 1. Elevated BNP 2. Continue diuresis 3. stop steroids 4. Wean FiO2 as tolerated. Subjective Date of service: 12/06/21 Principal diagnosis: Acute on chronic systolic heart failure Interval history: Not discharged. Cards put on milrione drip. Objective Vital Signs - 12hr 12/05/21 12/05/21 12/05/21 23:00 23:08 23:09 Temperature 98 F Pulse Rate 71 74 Respiratory 17 15 Rate Blood Pressure 116/75 115/82 O2 Sat by Pulse 90 87 98 Oximetry 12/06/21 12/06/21 12/06/21 00:00 01:00 01:17 Temperature Pulse Rate 82 63 58 L Respiratory 15 17 Rate Blood Pressure 128/80 128/80 O2 Sat by Pulse 89 93 Oximetry 12/06/21 12/06/21 12/06/21 02:00 03:00 03:33 Temperature 98.8 F Pulse Rate 79 64 Respiratory 18 20 Rate Blood Pressure 128/80 134/75 O2 Sat by Pulse 93 86 98 Oximetry 12/06/21 12/06/21 12/06/21 04:00 05:00 06:00 Temperature Pulse Rate 59 L 57 L 73 Respiratory 16 15 17 Rate Blood Pressure 134/75 134/75 105/60 O2 Sat by Pulse 95 90 100 Oximetry 12/06/21 12/06/21 12/06/21 07:00 08:00 09:00 Temperature 98.4 F Pulse Rate 63 62 74 Respiratory 16 13 17 Rate Blood Pressure 125/75 131/83 119/71 O2 Sat by Pulse 92 95 92 Oximetry 12/06/21 09:48 Temperature Pulse Rate 71 Respiratory Rate Blood Pressure 119/71 O2 Sat by Pulse Oximetry Constitutional: no acute distress, alert Eyes: non-icteric Neck: supple Effort: mildly labored Ascultation: Bilateral: diminished breath sounds Percussion: Bilateral: not dull Tactile fremitus: Bilateral: normal Cardiovascular: regular rate and rhythm Gastrointestinal: normoactive bowel sounds Neurologic: normal mental status, non-focal exam Psychiatric: mood appropriate, affect normal CBC and BMP: 12/06/21 04:33 12/06/21 04:33 ABG, PT/INR, D-dimer: ABG ABG pH 7.340 pH Units (7.350-7.450) L 12/03/21 08:55 ABG pCO2 47.1 mm Hg 12/03/21 08:55 ABG pO2 91.1 mm Hg (80.0-90.0) H 12/03/21 08:55 ABG O2 Saturation 96.7 % (95.0-99.0) 12/03/21 08:55 PT/INR, D-dimer D-Dimer 1577.07 ng/mlDDU (0-234) H 12/03/21 12:31 Abnormal lab findings: Abnormal Labs 12/03/21 12/03/21 12/03/21 08:55 09:15 09:15 WBC 11.1 H MCV 95 H MCHC Lymph % (Auto) Seg Neutrophils % Seg Neuts % (Manual) 93.0 H Lymphocytes % (Manual) 7.0 L Seg Neutrophils # Seg Neutrophils # Man 10.3 H Lymphocytes # (Manual) 0.8 L D-Dimer ABG pH 7.340 L ABG pO2 91.1 H ABG Hemoglobin 13.2 L Potassium BUN 23 H Glucose 195 H POC Glucose NT-Pro-B Natriuret Pep 12/03/21 12/03/21 12/03/21 11:25 12:31 20:59 WBC MCV MCHC Lymph % (Auto) Seg Neutrophils % Seg Neuts % (Manual) Lymphocytes % (Manual) Seg Neutrophils # Seg Neutrophils # Man Lymphocytes # (Manual) D-Dimer 1577.07 H ABG pH ABG pO2 ABG Hemoglobin Potassium BUN Glucose POC Glucose 147 H NT-Pro-B Natriuret Pep 936.6 H 12/04/21 12/04/21 12/05/21 03:20 03:20 04:56 WBC 13.3 H 17.2 H MCV 95 H MCHC 35 H Lymph % (Auto) 11.0 L Seg Neutrophils % 86.8 H Seg Neuts % (Manual) Lymphocytes % (Manual) Seg Neutrophils # 11.5 H Seg Neutrophils # Man Lymphocytes # (Manual) D-Dimer ABG pH ABG pO2 ABG Hemoglobin Potassium BUN Glucose 147 H POC Glucose NT-Pro-B Natriuret Pep 12/05/21 12/06/21 04:56 04:33 WBC MCV MCHC Lymph % (Auto) Seg Neutrophils % Seg Neuts % (Manual) Lymphocytes % (Manual) Seg Neutrophils # Seg Neutrophils # Man Lymphocytes # (Manual) D-Dimer ABG pH ABG pO2 ABG Hemoglobin Potassium 3.3 L BUN 21 H 22 H Glucose 112 H 105 H POC Glucose NT-Pro-B Natriuret Pep
--- NOTE | 2021-12-06 12:26 | Progress Note ---
Assessment and Plan - Patient Problems (1) Acute on chronic systolic heart failure Current Visit: Yes Status: Acute Plan to address problem: Patient is visiting from [place], admitted with acute on chronic systolic heart failure. He gives a history of nonischemic cardiomyopathy, states that a cardiac catheterization a year ago showed no significant coronary disease, following which he underwent implantation of an ICD. He is uncertain about his ejection fraction, but appears to be on guideline directed medical cocktail for chronic systolic heart failure. His echocardiogram here shows severe left ventricular systolic dysfunction with ejection fraction less than 20%. Subjective Date of service: 12/06/21 Principal diagnosis: Acute on chronic systolic heart failure Interval history: Patient was started on intravenous milrinone for decompensated heart failure. Diuresing well on milrinone and diuretics. Objective Vital Signs Temp Pulse Resp BP Pulse Ox 12/06/21 11:00 74 18 135/87 95 12/06/21 10:00 69 17 135/87 91 12/06/21 09:48 71 119/71 12/06/21 09:00 74 17 119/71 92 12/06/21 08:00 98.4 F 62 13 131/83 95 12/06/21 07:00 63 16 125/75 92 12/06/21 06:00 73 17 105/60 100 12/06/21 05:00 57 L 15 134/75 90 12/06/21 04:00 59 L 16 134/75 95 12/06/21 03:33 98.8 F 98 12/06/21 03:00 64 20 134/75 86 12/06/21 02:00 79 18 128/80 93 12/06/21 01:17 58 L 12/06/21 01:00 63 17 128/80 93 12/06/21 00:00 82 15 128/80 89 12/05/21 23:09 98 F 98 12/05/21 23:08 74 15 115/82 87 12/05/21 23:00 71 17 116/75 90 12/05/21 22:00 68 17 116/75 94 12/05/21 21:00 77 20 127/87 91 12/05/21 20:00 81 22 127/87 92 12/05/21 19:16 98.4 F 12/05/21 19:12 98 12/05/21 19:00 84 25 H 138/78 92 12/05/21 18:00 119/77 93 12/05/21 17:00 80 113/77 91 12/05/21 16:01 67 16 113/77 88 12/05/21 16:00 98.2 F 98 12/05/21 15:01 82 22 95/75 90 12/05/21 14:00 59 L 15 128/77 92 12/05/21 13:00 57 L 15 125/86 97 - Physical Examination General: No Apparent Distress HEENT: Positive: PERRL Neck: Positive: neck supple Cardiac: Positive: Reg Rate and Rhythm Lungs: Positive: Decreased Breath Sounds Neuro: Positive: Grossly Intact, No Lateralizing Findings Abdomen: Positive: Soft, Active Bowel Sounds Skin: Positive: Clear Extremities: Absent: edema - Labs and Meds CBC 12/06/21 Range/Units 04:33 WBC 9.1 (4.5-11.0) K/mm3 RBC 4.20 (3.65-5.03) M/mm3 Hgb 13.0 (11.8-15.2) gm/dl Hct 39.4 (35.5-45.6) % Plt Count 264 (140-440) K/mm3 Comprehensive Metabolic Panel 12/06/21 Range/Units 04:33 Sodium 141 (137-145) mmol/L Potassium 3.3 L (3.6-5.0) mmol/L Chloride 103.6 (98-107) mmol/L Carbon Dioxide 26 (22-30) mmol/L BUN 22 H (9-20) mg/dL Creatinine 1.2 (0.8-1.3) mg/dL Glucose 105 H (75-100) mg/dL Calcium 8.5 (8.4-10.2) mg/dL
[2021-12-07 04:47] LABS: BUN/Creatinine Ratio 15; Blood Urea Nitrogen 18 mg/dL (9-20); Calcium 8.6 mg/dL (8.4-10.2); Hemolysis Index 3
[2021-12-07] MEDS: HEPARIN 5,000 UNIT/1 ML VIAL SUB-Q SCH ×2 (05:02→14:11)
[2021-12-07] MEDS ORDERED: POTASSIUM CHLORIDE ER 20 MEQ TAB PO ONE (05:30)
[2021-12-07] MEDS: FUROSEMIDE 40 MG/4 ML INJ IV SCH (06:07)
[2021-12-07] MEDS: MILRINONE-D5W 20 MG/100 ML 20 MG/100 ML BAG IV SCH (06:07)
[2021-12-07] MEDS: amLODIPine 5 MG TAB PO SCH (10:25)
[2021-12-07] MEDS: SENNOSIDES 8.6 MG TAB PO SCH (10:25)
[2021-12-07] MEDS: ASPIRIN 81 MG TAB CHEW PO SCH (10:25)
[2021-12-07] MEDS: carvediloL 3.125 MG TAB PO SCH (10:25)
[2021-12-07] MEDS: SACUBITRIL/VALSARTAN 24-26 MG TAB PO SCH (10:25)
[2021-12-07] MEDS: ISOSORBIDE DINITRATE 20 MG TAB PO SCH (10:26)
[2021-12-07] MEDS: PANTOPRAZOLE 40 MG TAB PO SCH (10:26)
--- NOTE | 2021-12-07 13:37 | Discharge Summary ---
<STACEY BILLS - Last Filed: 12/07/21 19:48> Providers - Providers Date of Admission: 12/03/21 11:09 Date of discharge: 12/07/21 Attending physician: CHADWICK THOMPSON MD 12/03/21 11:08 Consult to Physician [CONS] Routine Comment: Consulting Provider: KULDEEP MANDUJANO Physician Instructions: Reason For Exam: CHF EXACERBATION Primary care physician: [facility] Hospitalization Reason for admission: Acute on Chronic CHF Exacerbation Condition: Stable Hospital course: This is a 61-year-old male with CVA x4, HTN, CHF, and dilated cardiomyopathy s/p AICD placement admitted with acute CHF exacerbation Hospital course to date: 12/04: Patient has been transitioned off of BiPAP and is on nasal cannula, CTA chest negative for PE. Cardiology plans to conduct a stress test on Sunday. Echocardiogram pending. Nebulizers and steroids discontinued. Patient will be transferred to the floor. 12/05: PRO overnight. VSS. Echo reviewed, EF is 15 to 20%, continue IV lasix. Plan for possible stress test today per cardiology. Patient remains afebrile, on RA, and hemodynamicaly stable. Leukocytosis this am, most likely related to IV steroids. Will hold IV Abx for now, panculture if febrile. 12/06: Stress test cancelled yesterday. Milrinone gtt was initiated X72hrs per Cardio and IV lasix increased to BID. Patient remains hemodynamicaly stable, leukocytosis resolved and no fevers reported. Monitor and replace electrolytes as needed. 12/07: Remains stable. Over 2.9L UOP in last 24hrs. No respiratory distress noted. D/W Cardio, patient is stable for discharge today. Thorough discussion with patient's at the bedside, per patient his flight back to [place] is for tomorrow. Discussed to resuming home meds as prescribed. Lasix increased to 40mg by mouth twice a day for now.Then follow up with his cardiology in [place] within 7days and primary care provider within 7 to 10 days. Recommend follow up BMP within a week to assess renal function. All questions and concerns were addressed at this time. Patient verbalized understanding agreed with discharge. Patient also voiced that he has enough medications and does not need any prescriptions at this time. Assessment and Plan #Acute on Chronic Systolic and Diastolic Heart Failure, #Dilated Cardiomyopathy s/p AICD #H/o HTN, HLD - Presented with SOBX1 week, tripoding, and unable to complete sentences requiring Bipap - 2D echo reviewed, EF 15 to 20% - Cardiology consulted, appreciate recommendations - Stress test cancelled by Cardio. Completed X48hrs Milrinone gtt - IV lasix increased to BID - Remains SB to SR on the monitor, VSS - Continue Amlodipine, aspirin, Lipitor, Coreg, Isordil, & Entresto - Continue blood pressure monitor per protocol - Maintain MAP above 65 #Acute Hypoxic Respiratory Failure #Fluid Overload - Presented with SOB, tripoding - CXR showed moderate cardiomegaly with volume overload - CTA chest also reviewed, no evidence of PE. Significant improvement in lungs aeration, residual bibasilar atelectasis reported. See report for detail - S/p continuous Bipap and IV Steroids - On IV lasix. Patient is stable on RA - PRN O2 supplementation as needed - Bipap at night - Pulmonary hygiene and PRN nebx treatment - Continue SPO2 monitoring for SPO2 goal above 92% - Follow up outpatient for ARIADNA eval/Sleep study - Pulmonary signed off #Hypokalemia - most likely due to diuretic - on IV Lasix BID, K repleted - Monitor and replace electrolytes as needed #Leukocytosis-resolved - Anoop in WBCs, most likely secondary to IV steroids- D/aries - Leukocytosis resolved - Patient remains afebrile. With significant improvement in respiratory status post IV lasix - CXR consistent with fluid overload - CTA chest also reviewed confirmed Significant improvement in lungs aeration, residual bibasilar atelectasis reported - Will hold empiric IV abx for now - Panculture if patient is febrile - Continue to trend CBC #Morbid Obesity - BMI 37.5 - Encouraged lifestyle and dietary modifications, increase physical activity at discharge #Elevated D-Dimer - CTA chest showed no pulmonary embolism, moderate cardiomegaly - BLE doppler negative DVT - SCDs to BLE while in bed - Heparin SubQ #GI/DVT Prophylaxis - PPI- Protonix - Heparin SubQ - SCDs to BLE while in bed Disposition: 01 HOME / SELF CARE / HOMELESS Final Discharge Diagnosis (Prints w/discharge instructions): Acute on Chronic CHF Exacerbation Time spent for discharge: 35 Core Measure Documentation - Palliative Care Palliative Care/ Comfort Measures: Not Applicable - Core Measures Any of the following diagnoses?: heart failure - Heart Failure Discharge Requirements BELEN/ARB for LVSD if EF <40%: Yes Beta gonzalo at discharge: Yes Exam - Constitutional Vitals: Temp Pulse Resp BP Pulse Ox 97.7 F 78 27 H 102/68 99 12/07/21 08:45 12/07/21 13:10 12/07/21 13:00 12/07/21 13:00 12/07/21 13:10 General appearance: Present: no acute distress, well-nourished, obese - EENT Eyes: Present: PERRL, EOM intact ENT: hearing intact - Neck Neck: Present: normal ROM - Respiratory Respiratory effort: normal Respiratory: bilateral: diminished - Cardiovascular Rhythm: regular Heart Sounds: Present: S1 & S2 - Extremities Extremities: no ischemia, pulses intact, pulses symmetrical Extremity abnormal: edema - Peripheral Assessment Generalized Edema Type: Non-pitting Edema Degree: 1+ Capillary Refill: < 3 seconds Skin Temperature: Warm Peripheral Pulses: within normal limits - Abdominal General gastrointestinal: Present: soft, non-distended, normal bowel sounds Male genitourinary: Present: deferred - Rectal Rectal Exam: deferred - Integumentary Integumentary: Present: clear, warm, dry - Musculoskeletal Musculoskeletal: strength equal bilaterally - Psychiatric Psychiatric: appropriate mood/affect, cooperative - Neurologic Neurologic: CNII-XII intact, moves all extremities - Allied Health Allied health notes reviewed: nursing, case management Plan Activity: no restrictions Diet: low fat, low cholesterol, low salt Wound: open to air Special Instructions: restrict fluid intake to, record daily weights Care Plan Goals: -Resume home meds and take medications as prescribed -Lasix increased to 40 twice a day for now. -Follow up with your cardiology within 7days for follow up and repeat BMP -Follow up with your primary care provider within 7 to 10 days. If your symptoms return if visit your nearest emergency department for further evaluation and treatment Follow up with: GERMÁN ELLIOTT MD [Primary Care Provider] - 7 Days <CHADWICK THOMPSON - Last Filed: 12/08/21 07:28> Providers - Providers Date of Admission: 12/03/21 11:09 Attending physician: CHADWICK THOMPSON MD 12/03/21 11:08 Consult to Physician [CONS] Routine Comment: Consulting Provider: KULDEEP MANDUJANO Physician Instructions: Reason For Exam: CHF EXACERBATION Primary care physician: [facility] Hospitalization Hospital course: I saw and evaluated the patient. I agree with the findings and the plan of care as documented in the Nurse Practitioner's~note, with the following corrections and additions. Exam - Constitutional Vitals: Temp Pulse Resp BP Pulse Ox 97.7 F 73 10 L 95/72 94 12/07/21 08:45 12/07/21 14:00 12/07/21 14:00 12/07/21 14:00 12/07/21 14:00
--- NOTE | 2021-12-07 14:14 | Progress Note ---
Assessment and Plan - Patient Problems (1) Acute on chronic systolic heart failure Current Visit: Yes Status: Acute Plan to address problem: Patient is visiting from [place], admitted with acute on chronic systolic heart failure. He gives a history of nonischemic cardiomyopathy, states that a cardiac catheterization a year ago showed no significant coronary disease, following which he underwent implantation of an ICD. His echocardiogram here showed severe left ventricular systolic dysfunction with ejection fraction less than 15-20%. Patient is clinically compensated following 48 hours of IV milrinone, stable for cardiac discharge, continue oral guideline directed medical therapy as outlined. 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 Subjective Date of service: 12/07/21 Principal diagnosis: Acute on chronic systolic heart failure Interval history: Patient looks and feels much better after 48 hours of intravenous milrinone, states that he wants to go home. Objective Vital Signs Temp Pulse Pulse Resp BP Pulse Ox 12/07/21 13:10 78 78 99 12/07/21 13:00 84 27 H 102/68 90 12/07/21 12:02 84 20 125/91 92 12/07/21 11:00 103 H 17 124/80 89 12/07/21 10:25 74 124/80 12/07/21 10:00 64 16 105/63 96 12/07/21 09:00 74 12 117/77 93 12/07/21 08:48 74 99 12/07/21 08:45 97.7 F 12/07/21 08:00 73 17 117/77 96 12/07/21 07:00 105 H 17 123/75 91 12/07/21 06:00 66 17 120/68 91 12/07/21 05:00 73 19 133/81 89 12/07/21 04:00 98.4 F 87 20 107/65 93 12/07/21 03:18 99 12/07/21 03:00 60 22 130/67 90 12/07/21 02:00 76 17 127/70 97 12/07/21 01:00 69 18 127/70 88 12/07/21 00:00 98.9 F 67 17 117/77 93 12/06/21 23:00 80 17 128/84 90 12/06/21 22:32 80 23 128/84 90 12/06/21 22:00 62 17 128/84 91 12/06/21 21:00 78 21 115/62 90 12/06/21 20:00 79 22 113/73 94 12/06/21 19:23 99 12/06/21 19:22 98.4 F 12/06/21 19:00 78 27 H 120/76 90 12/06/21 18:00 82 21 117/70 90 12/06/21 17:00 74 22 138/93 94 12/06/21 16:00 98.0 F 73 78 15 138/93 99 12/06/21 15:00 59 L 10 L 132/88 95 - Physical Examination General: No Apparent Distress HEENT: Positive: PERRL Neck: Positive: neck supple Cardiac: Positive: Reg Rate and Rhythm Lungs: Positive: clear to auscultation Neuro: Positive: Grossly Intact, No Lateralizing Findings Abdomen: Positive: Soft, Active Bowel Sounds Skin: Positive: Clear Extremities: Absent: edema - Labs and Meds Comprehensive Metabolic Panel 12/07/21 Range/Units 03:53 Sodium 141 (137-145) mmol/L Potassium 3.3 L (3.6-5.0) mmol/L Chloride 102.1 (98-107) mmol/L Carbon Dioxide 26 (22-30) mmol/L BUN 18 (9-20) mg/dL Creatinine 1.2 (0.8-1.3) mg/dL Glucose 105 H (75-100) mg/dL Calcium 8.6 (8.4-10.2) mg/dL
[2021-12-07 14:29] VITALS: BP 95/72
[2021-12-07] MEDS ORDERED: POTASSIUM CHLORIDE ER 20 MEQ TAB PO SCH (22:00)
== END 2021-12-07 15:29 | disposition home or self-care (01) | DRG 291 ==
LOC: ED 08:22 → IMCU 11:09
PROVIDERS: ADMIT Internal Medicine; ATTEND Internal Medicine
PROC: 4A033R1 Measurement of Arterial Saturation, Peripheral, Percutaneous Approach (ICD-10-PCS; principal; 2021-12-03)
PROC: 5A09357 Assistance with Respiratory Ventilation, Less than 24 Consecutive Hours, Continuous Positive Airway Pressure (ICD-10-PCS; 2021-12-03)
DX: I11.0 Hypertensive heart disease with heart failure (principal); I50.43 Acute on chronic combined systolic (congestive) and diastolic (congestive) heart failure; J96.01 Acute respiratory failure with hypoxia; J44.1 Chronic obstructive pulmonary disease with (acute) exacerbation; I42.0 Dilated cardiomyopathy; E66.01 Morbid (severe) obesity due to excess calories; Z68.37 Body mass index [BMI] 37.0-37.9, adult; E78.5 Hyperlipidemia, unspecified; R73.9 Hyperglycemia, unspecified; R00.1 Bradycardia, unspecified; I69.320 Aphasia following cerebral infarction; D72.829 Elevated white blood cell count, unspecified; E87.6 Hypokalemia; Z87.891 Personal history of nicotine dependence
CPT/HCPCS: 36415; 71045; 71275; 80048; 80053; 82803; 82962; 83036; 83735; 83880; 84100; 84145; 85007; 85025; 85027; 85379; 93306; 93970; 94640; 94644; 94760; G0378; C8929; J0696; J1644; J1650; J1940; J2260; J2930; Q9967